=== PATIENT | female | born 1955 | race Caucasian/White ===

== ENCOUNTER → 2018-08-30 | Outpatient (CLI) | payer BC ==
--- NOTE | 2018-08-30 12:41 | CT ---
EXAMINATION TYPE: CT abdomen pelvis w con DATE OF EXAM: 08/30/2018 COMPARISON: NONE HISTORY: 63-year-old female diverticulitis, LLQ pain TECHNIQUE: Contiguous axial scanning of the abdomen and pelvis following administration of 100 ml Iso guillermina 300 IV contrast. Delayed images through the kidneys and coronal/sagittal reconstructions perform ed. CT DLP: 766.5 mGycm Automated exposure control for dose reduction was used. FINDINGS: Heart normal size without pericardial effusion. Lung bases clear without pleural effusion. No focal liver lesion or biliary ductal dilatation. Portal venous system is patent. Adrenal glands, right kidney, gallbladder, and pancreas appear within normal limits. Spleen upper limits of normal in size at 13.7 cm. Extrarenal pelvis involving the left kidney. No dil ated small bowel, free fluid, or free air. No mesenteric or retroperitoneal lymphadenopathy. Normal appendix. Oral contrast progressed to the rectum. Mid to distal sigmoid diverticulosis without pericolonic infl ammatory change seen. However, there is focal eccentric mural based thickening involving the posterio r wall of the rectosigmoid junction spanning approximately 2.3 cm. Refer to axial image 64 and sagitt al image 62. Coronal image 71. Bladder is urine distended. Pelvic phleboliths. Uterus surgically absent. No adnexal abnormality. Nei ther ovary is clearly visualized. No abnormal fluid collection in the pelvis or pelvic lymphadenopath y seen. Bones: Mild degenerative changes at the hips and left SI joint. Mild to moderate scattered degenerati ve disc disease. Facet arthropathy lower lumbar spine. IMPRESSION: 1. MILD DIVERTICULOSIS MID TO DISTAL SIGMOID COLON. NO CT FINDINGS OF ACUTE DIVERTICULITIS. 2. HOWEVER, THERE IS ECCENTRIC MURAL BASED SOFT TISSUE THICKENING AT THE RECTOSIGMOID JUNCTION. DIREC T VISUALIZATION RECOMMENDED TO EXCLUDE UNDERLYING NEOPLASM. 3. SPLEEN UPPER LIMITS OF NORMAL IN SIZE AT 13.7 CM.
== END | disposition home or self-care (01) ==
LOC: RADCTMAIN 10:24
PROVIDERS: ATTEND Surgery Plastic and Reconstructive Surgery
DX: K57.30 Diverticulosis of large intestine without perforation or abscess without bleeding (principal); Z88.0 Allergy status to penicillin; Z88.1 Allergy status to other antibiotic agents
CPT/HCPCS: 74177; Q9967

== ENCOUNTER 2018-09-13 21:22 | Inpatient (IN) | payer BC ==
[2018-09-13] MEDS ORDERED: SODIUM CHLORIDE 0.9% 500 ML 500 ML IV STA (22:20)
--- NOTE | 2018-09-13 22:23 | ED ---
General Adult HPI - General Chief complaint: Recheck/Abnormal Lab/Rx Stated complaint: diverticulitis, low body temp Time Seen by Provider: 09/13/18 22:13 Source: patient, RN notes reviewed Mode of arrival: ambulatory Limitations: no limitations - History of Present Illness Initial comments: Patient is a pleasant 63-year-old female presenting to the emergency Department with complaints of abdominal discomfort. Patient has a history of diverticulitis. Patient states she did have section of colon removed approximately 8 or 9 years ago. Patient had similar symptoms start over a week ago. Patient did have computed tomography scan done around 1 week ago showing diverticulitis. Patient was started on Cipro and Flagyl. Patient is having worsening symptoms, especially today. Patient is having low temperatures and increase discomfort. Patient has increased fullness in her abdomen. Patient has nausea and decreased appetite. No vomiting. No constipation or diarrhea. No bloody stools. - Related Data Home Medications Medication Instructions Recorded Confirmed Cholecalciferol [Vitamin D3] 1,000 unit PO DAILY 09/13/18 09/13/18 Ciprofloxacin HCl [Cipro] 500 mg PO Q12HR 09/13/18 09/13/18 Omeprazole 40 mg PO DAILY 09/13/18 09/13/18 metroNIDAZOLE [Flagyl] 500 mg PO Q8HR 09/13/18 09/13/18 Allergies Allergy/AdvReac Type Severity Reaction Status Date / Time Penicillins Allergy Rash/Hives Verified 09/13/18 22:18 Review of Systems ROS Statement: Those systems with pertinent positive or pertinent negative responses have been documented in the HPI. ROS Other: All systems not noted in ROS Statement are negative. Constitutional: Reports: as per HPI, chills Eyes: Denies: eye pain ENT: Denies: ear pain Respiratory: Denies: cough Cardiovascular: Denies: chest pain Endocrine: Denies: fatigue Gastrointestinal: Reports: abdominal pain, nausea. Denies: vomiting Genitourinary: Denies: dysuria Musculoskeletal: Denies: back pain Skin: Denies: rash Neurological: Denies: weakness Past Medical History Additional Past Medical History / Comment(s): diverticulitis History of Any Multi-Drug Resistant Organisms: None Reported Past Surgical History: Hysterectomy, Orthopedic Surgery Past Psychological History: No Psychological Hx Reported Smoking Status: Never smoker Past Alcohol Use History: None Reported Past Drug Use History: None Reported General Exam Limitations: no limitations General appearance: alert, in no apparent distress Head exam: Present: atraumatic Eye exam: Present: normal appearance ENT exam: Present: normal oropharynx Neck exam: Present: normal inspection Respiratory exam: Present: normal lung sounds bilaterally Cardiovascular Exam: Present: regular rate, normal rhythm Expanded Peripheral pulses: 2+: Dorsalis Pedis (R), Dorsalis Pedis (L) GI/Abdominal exam: Present: soft, tenderness (Mild to moderate tenderness left lower quadrant), normal bowel sounds. Absent: distended, guarding, rebound, rigid, pulsatile mass Extremities exam: Present: pedal edema (+1 bilateral which patient states is chronic). Absent: calf tenderness Neurological exam: Present: alert Psychiatric exam: Present: normal affect, normal mood Skin exam: Present: normal color Course Vital Signs 09/13/18 21:51 Temperature 97.8 F Pulse Rate 69 Respiratory 20 Rate Blood Pressure 162/93 O2 Sat by Pulse 100 Oximetry - Reevaluation(s) Reevaluation #1: 09/13/18 22:27 Case was discussed with Dr. Aguirre, covering for Dr. Huynh, who will admit. Case was also discussed with Dr. Hurt who has seen this patient recently. She does request repeat computed tomography scan. She does recommend Levaquin and Flagyl. Medical Decision Making - Lab Data Result diagrams: 09/13/18 22:52 09/13/18 22:52 Disposition Clinical Impression: Diverticulitis Disposition: ADMITTED IP TO THIS HOSP Is patient prescribed a controlled substance at d/c from ED?: No Decision Time: 22:27
[2018-09-13] MEDS ORDERED: IOPAMIDOL-300 CONTRAST 30 ML VIAL (ORAL USE) PO PRN (22:25)
[2018-09-13] MEDS ORDERED: ONDANSETRON 4 MG/2 ML VIAL IVP PRN (22:28)
[2018-09-13] MEDS ORDERED: HYDROmorphone 0.5 MG/0.5 ML SYRINGE IVP PRN (22:28)
[2018-09-13] MEDS ORDERED: HYDROmorphone 1 MG/ML 1 ML SYRINGE IVP PRN (22:28)
[2018-09-13] MEDS ORDERED: NALOXONE 0.4 MG/ML 1 ML VIAL IV PRN (22:28)
[2018-09-13] MEDS ORDERED: LEVOFLOXACIN 750MG-D5W PMX 750 MG in DEXTROSE/WATER 1 150ML.BAG IVPB STA (22:30)
[2018-09-13] MEDS ORDERED: metroNIDAZOLE-NS PMX 500 MG in SALINE 1 100ML.BAG IVPB STA (22:47)
[2018-09-13] MEDS: PANTOPRAZOLE 40 MG/10 ML VIAL IV SCH (22:58)
[2018-09-13] MEDS: SODIUM CHLORIDE 0.9% 1,000 ML IV SCH (23:04)
[2018-09-13 23:14] LABS: Basophils % (A) 0 %; Eosinophils # (A) 0.2 k/uL (0-0.7); Eosinophils % (A) 4 %; HCT 48.9 % (34.0-46.0); HGB 16.3 gm/dL (11.4-16.0); Lymphocytes # (A) 1.6 k/uL (1.0-4.8); Lymphocytes % (A) 30 %; MCH 31.2 pg (25.0-35.0); MCHC 33.4 g/dL (31.0-37.0); MCV 93.4 fL (80.0-100.0); Mean Platelet Volume 6.2; Monocytes # (A) 0.3 k/uL (0-1.0); Monocytes % (A) 5 %; Neutrophils # (A) 3.3 k/uL (1.3-7.7); Neutrophils % (A) 59 %; Platelet Count 240 k/uL (150-450); RBC 5.24 m/uL (3.80-5.40); RDW 12.5 % (11.5-15.5); WBC 5.5 k/uL (3.8-10.6)
[2018-09-13 23:24] LABS: Partial Thromboplastin Time 26.2 sec (22.0-30.0); Prothrombin Time 10.4 sec (9.0-12.0)
[2018-09-13 23:29] LABS: ALT 39 U/L (9-52); AST 23 U/L (14-36); Albumin 4.1 g/dL (3.5-5.0); Alkaline Phosphatase 71 U/L (38-126); Amylase 45 U/L (30-110); Anion Gap 8 mmol/L; Blood Urea Nitrogen 13 mg/dL (7-17); Calcium 9.4 mg/dL (8.4-10.2); Carbon Dioxide 24 mmol/L (22-30); Chloride 108 mmol/L (98-107); Glucose 91 mg/dL (74-99); Lipase 151 U/L (23-300); Potassium 3.9 mmol/L (3.5-5.1); Sodium 140 mmol/L (137-145); Total Bilirubin 0.6 mg/dL (0.2-1.3); Total Protein 6.7 g/dL (6.3-8.2)
[2018-09-13 23:57] LABS: Appearance,Urine Clear (Clear); Bilirubin,Urine Negative (Negative); Blood,Urine Negative (Negative); Color,Urine Light Yellow; Glucose,Urine (UA) Negative (Negative); Ketones,Urine Negative (Negative); Leukocyte Esterase,Urine Moderate (Negative); Mucus,Urine Rare /hpf; Nitrite,Urine Negative (Negative); PH, Urine 6.5 (5.0-8.0); Protein,Urine Negative (Negative); RBC,Urine 3 /hpf (0-5); Specific Gravity,Urine 1.006 (1.001-1.035); Squamous Epithelial Cell,Urine 3 /hpf (0-4); Urobilinogen,Urine <2.0 mg/dL (<2.0); WBC,Urine 7 /hpf (0-5)
[2018-09-14 01:00] VITALS: RESP 16; BMI 29.9
[2018-09-14] MEDS: SODIUM CHLORIDE 0.9% 1,000 ML IV SCH ×2 (01:36→15:12)
--- NOTE | 2018-09-14 01:46 | CT ---
EXAM: CT Abdomen and Pelvis With Intravenous Contrast CLINICAL HISTORY: Pain. Diverticulitis. History of hysterectomy. TECHNIQUE: Axial computed tomography images of the abdomen and pelvis with intravenous contrast. Oral contrast was administered. Delayed imaging was performed. Coronal and sagittal reformatted images were created and reviewed. CTDI is 26.50 mGy and DLP is 901.40 mGy-cm. This CT exam was performed using one or more of the following dose reduction techniques: automated exposure control, adjustment of the mA and/or kV according to patient size, and/or use of iterative reconstruction technique. COMPARISON: CT dated 08/30/2018. FINDINGS: Lung bases: Unremarkable. No mass. No consolidation. ABDOMEN: Liver: Unremarkable. No mass. Gallbladder and bile ducts: Unremarkable. No radiopaque calculi. No biliary ductal dilation. Pancreas: Unremarkable. No ductal dilation. No mass. No adjacent inflammatory changes. Spleen: Unremarkable. No splenomegaly. Adrenals: Unremarkable. No mass. Kidneys and ureters: Unremarkable. No hydronephrosis or ureteral calculus. No solid mass. Stomach and bowel: Colonic diverticula without evidence of acute diverticulitis. No bowel obstruction. Minimal prominence of rectosigmoid sigmoid wall. Focal wall thickening along rectosigmoid junction is decreased. Stable postsurgical changes of rectosigmoid junction. PELVIS: Appendix: Normal appendix. No findings to suggest acute appendicitis. Bladder: Unremarkable. No mass or wall thickening. Reproductive: Status post hysterectomy. Ovaries not seen. ABDOMEN and PELVIS: Intraperitoneal space: Unremarkable. No free air. No ascites or significant fluid collection. Bones/joints: Degenerative changes of the visualized spine. No acute fracture or malalignment. Soft tissues: Unremarkable. Vasculature: Mild atherosclerosis. No abdominal aortic aneurysm. Lymph nodes: Unremarkable. No enlarged lymph nodes. IMPRESSION: 1. Minimal prominence of rectosigmoid wall which may related to underdistention or mild nonspecific colitis. Focal wall thickening along rectosigmoid junction appears decreased compared to prior CT. Stable postsurgical changes of rectosigmoid junction. Recommend follow-up as clinically warranted. 2. Colonic diverticula without evidence of acute diverticulitis. 3. Status post hysterectomy.
[2018-09-14] MEDS: metroNIDAZOLE-NS PMX 500 MG in SALINE 1 100ML.BAG IVPB SCH ×3 (06:38→17:36)
[2018-09-14] MEDS: PANTOPRAZOLE 40 MG/10 ML VIAL IV SCH (08:22)
[2018-09-14 11:40] LABS: Basophils % (A) 0 %; Eosinophils # (A) 0.1 k/uL (0-0.7); Eosinophils % (A) 2 %; HCT 49.5 % (34.0-46.0); HGB 16.5 gm/dL (11.4-16.0); Lymphocytes # (A) 1.5 k/uL (1.0-4.8); Lymphocytes % (A) 26 %; MCH 31.3 pg (25.0-35.0); MCHC 33.3 g/dL (31.0-37.0); MCV 94.1 fL (80.0-100.0); Mean Platelet Volume 6.7; Monocytes # (A) 0.3 k/uL (0-1.0); Monocytes % (A) 5 %; Neutrophils # (A) 3.7 k/uL (1.3-7.7); Neutrophils % (A) 65 %; Platelet Count 262 k/uL (150-450); RBC 5.26 m/uL (3.80-5.40); RDW 13.6 % (11.5-15.5); WBC 5.6 k/uL (3.8-10.6)
--- NOTE | 2018-09-14 14:50 | P.GSCN ---
History of Present Illness Consult date: 09/14/18 Reason for Consult: diverticulitis Requesting physician: Miguel Blackburn History of present illness: CHIEF COMPLAINT: diverticulitis HISTORY OF PRESENT ILLNESS: 63-year-old female who presented to the emergency room due to abdominal pain. Patient states approximately a week ago she was diagnosed with diverticulitis on an outpatient basis and was prescribed Cipro and Flagyl. She states she had little improvement in her abdominal pain and her temperature was running low and she couldnt get warm so she came to the emergency room for further evaluation. Patient examined at the bedside with family present. She appears comfortable and is laughing and joking with her family. She reports improvement in abdominal pain. She is having loose nonbloody stools. Denies nausea or vomiting. WBC 5.6. Hemoglobin 16.5. Patient reports being placed on antibiotics about 6 times per year, but she is not sure how many of those times are for diverticulitis. PAST MEDICAL HISTORY: See list. PAST SURGICAL HISTORY: See list. SOCIAL HISTORY: No illicit drug use. REVIEW OF SYSTEMS: CONSTITUTIONAL: Denies fever or chills. HEENT: Denies blurred vision, vision changes, or eye pain. Denies hemoptysis CARDIOVASCULAR: Denies chest pain or pressure. RESPIRATORY: No shortness of breath. GASTROINTESTINAL: Refer to HPI for pertinent findings HEMATOLOGIC: Denies bleeding disorders. GENITOURINARY: Denies any blood in urine. SKIN: Denies pruitis. Denies rash. PHYSICAL EXAM: VITAL SIGNS: Reviewed. GENERAL: Well-developed in no acute distress. HEENT: No sclera icterus. Extraocular movements grossly intact. Moist buccal mucosa. Head is atraumatic, normocephalic. ABDOMEN: Soft. Nondistended. Minimal tenderness upon palpation of left lower quadrant. NEUROLOGIC: Alert and oriented. Cranial nerves II through XII grossly intact. IMAGING: per radiologist's dictation: 1. CT abdomen and pelvis minimal prominence of rectosigmoid wall which may the related to under distention or mild nonspecific colitis. Focal wall thickening along the retrosigmoid junction appears decreased compared to prior CT. Stable postsurgical changes of the rectosigmoid junction. Colonic diverticula without evidence of acute diverticulitis. ASSESSMENT: 1. Abdominal pain 2. Acute diverticulitis, failed outpatient treatment 3. History of bowel resection, approximately 9 years ago secondary to diverticulitis PLAN: 1. Continue IV fluids 2. Continue antibiotics 3. Begin clear liquid diet 4. No immediate surgical intervention recommended 5. Patient has outpatient EGD/colonoscopy scheduled for 10/04/[address] Tolentino Nurse practitioner note has been reviewed by physician. Signing provider agrees with the documented findings, assessment, and plan of care. Past Medical History Additional Past Medical History / Comment(s): diverticulitis History of Any Multi-Drug Resistant Organisms: None Reported Past Surgical History: Hysterectomy, Orthopedic Surgery Additional Past Surgical History / Comment(s): surgeries for plantar fasciatis, ganglion cysts, sergio's neuroma, tendon release Past Anesthesia/Blood Transfusion Reactions: Motion Sickness Additional Past Anesthesia/Blood Transfusion Reaction / Comm: Nausea with anesthesia Past Psychological History: No Psychological Hx Reported Smoking Status: Never smoker Past Alcohol Use History: None Reported Past Drug Use History: None Reported - Past Family History Father Family Medical History: Hypertension Additional Family Medical History / Comment(s): Pancreatitis Mother Family Medical History: Congestive Heart Failure (CHF) Medications and Allergies Home Medications Medication Instructions Recorded Confirmed Type Cholecalciferol [Vitamin D3] 1,000 unit PO DAILY 09/13/18 09/14/18 History Ciprofloxacin HCl [Cipro] 500 mg PO Q12HR 09/13/18 09/14/18 History Omeprazole 40 mg PO DAILY 09/13/18 09/14/18 History metroNIDAZOLE [Flagyl] 500 mg PO Q8HR 09/13/18 09/14/18 History Allergies Allergy/AdvReac Type Severity Reaction Status Date / Time Penicillins Allergy Rash/Hives Verified 09/14/18 01:03 Surgical - Exam Vital Signs Temp Pulse Resp BP Pulse Ox 97.8 F 69 20 162/93 100 09/13/18 21:51 09/13/18 21:51 09/13/18 21:51 09/13/18 21:51 09/13/18 21:51 Results - Labs 09/14/18 10:55 09/13/18 22:52 Abnormal Lab Results - Last 24 Hours (Table) 09/13/18 09/13/18 09/13/18 Range/Units 22:52 22:52 23:37 Hgb 16.3 H (11.4-16.0) gm/dL Hct 48.9 H (34.0-46.0) % Chloride 108 H (98-107) mmol/L Ur Leukocyte Esterase Moderate H (Negative) Urine WBC 7 H (0-5) /hpf Urine Mucus Rare H (None) /hpf 09/14/18 Range/Units 10:55 Hgb 16.5 H (11.4-16.0) gm/dL Hct 49.5 H (34.0-46.0) % Chloride (98-107) mmol/L Ur Leukocyte Esterase (Negative) Urine WBC (0-5) /hpf Urine Mucus (None) /hpf Diabetes panel 09/13/18 Range/Units 22:52 Sodium 140 (137-145) mmol/L Potassium 3.9 (3.5-5.1) mmol/L Chloride 108 H (98-107) mmol/L Carbon Dioxide 24 (22-30) mmol/L BUN 13 (7-17) mg/dL Creatinine 0.64 (0.52-1.04) mg/dL Glucose 91 (74-99) mg/dL Calcium 9.4 (8.4-10.2) mg/dL AST 23 (14-36) U/L ALT 39 (9-52) U/L Alkaline Phosphatase 71 (38-126) U/L Total Protein 6.7 (6.3-8.2) g/dL Albumin 4.1 (3.5-5.0) g/dL Calcium panel 09/13/18 Range/Units 22:52 Calcium 9.4 (8.4-10.2) mg/dL Albumin 4.1 (3.5-5.0) g/dL Pituitary panel 09/13/18 Range/Units 22:52 Sodium 140 (137-145) mmol/L Potassium 3.9 (3.5-5.1) mmol/L Chloride 108 H (98-107) mmol/L Carbon Dioxide 24 (22-30) mmol/L BUN 13 (7-17) mg/dL Creatinine 0.64 (0.52-1.04) mg/dL Glucose 91 (74-99) mg/dL Calcium 9.4 (8.4-10.2) mg/dL Adrenal panel 09/13/18 Range/Units 22:52 Sodium 140 (137-145) mmol/L Potassium 3.9 (3.5-5.1) mmol/L Chloride 108 H (98-107) mmol/L Carbon Dioxide 24 (22-30) mmol/L BUN 13 (7-17) mg/dL Creatinine 0.64 (0.52-1.04) mg/dL Glucose 91 (74-99) mg/dL Calcium 9.4 (8.4-10.2) mg/dL Total Bilirubin 0.6 (0.2-1.3) mg/dL AST 23 (14-36) U/L ALT 39 (9-52) U/L Alkaline Phosphatase 71 (38-126) U/L Total Protein 6.7 (6.3-8.2) g/dL Albumin 4.1 (3.5-5.0) g/dL Assessment and Plan (1) Abdominal pain Current Visit: Yes Status: Acute Code(s): R10.9 - UNSPECIFIED ABDOMINAL PAIN SNOMED Code(s): 58742732 (2) History of bowel resection Current Visit: Yes Status: Acute Code(s): Z98.890 - OTHER SPECIFIED POSTPROCEDURAL STATES; Z90.49 - ACQUIRED ABSENCE OF OTHER SPECIFIED PARTS OF DIGESTIVE TRACT SNOMED Code(s): 264919015 (3) Diverticulitis Current Visit: Yes Status: Acute Code(s): K57.92 - DVTRCLI OF INTEST, PART UNSP, W/O PERF OR ABSCESS W/O BLEED SNOMED Code(s): 338296791
[2018-09-14 17:19] VITALS: BP 144/87; PULSE 74; TEMP 97.6
[2018-09-14] MEDS ORDERED: LEVOFLOXACIN 750MG-D5W PMX 750 MG in DEXTROSE/WATER 1 150ML.BAG IVPB SCH (22:30)
--- NOTE | 2018-09-15 07:15 | DS ---
DISCHARGE SUMMARY HISTORY PHYSICAL AND DISCHARGE SUMMARY: DATE OF ADMISSION: 09/13/2018 DATE OF DISCHARGE: 09/14/2018 DATE OF SERVICE: 09/14/2018. PRESENTING COMPLAINT: Abdominal pain. HISTORY OF PRESENTING COMPLAINT: This is a pleasant 63-year-old patient who follows with Dr. Chris Pratt. The patient has had a history of diverticulitis, had inches of bowel removed by Dr. Nataliia Perez in the past. The patient for about 3 months has been having abdominal pain on and off and has received at least what appears to be a 2 or 3 course of antibiotics. Yesterday, the patient does get abdominal pain on and off. Pretty much lower abdomen and waxes and wanes. Yesterday felt a bit cold, had some chills. Daughter took a temperature that was 94.5. There was no nausea, vomiting. The patient occasionally does have loose stools. When I came to her room, overall patient is doing better, looking well. The patient put on IV antibiotic. The patient is still currently on Cipro and Flagyl at home. The patient has been seen by Dr. Tolentino's in the outpatient and has been offered surgery, but the patient has been putting it off concerned about the surgery. The patient's 2 daughters at the bedside. Currently no fever or chills. Overall feeling better. Did tolerate some liquids. The patient also seen by Dr. Tolentino, from her standpoint, patient is stable. REVIEW OF SYSTEMS: CONSTITUTIONAL: None. HEENT: None. RESPIRATORY: None. GASTROINTESTINAL as above. GENITOURINARY: None. MUSCULOSKELETAL: None. DERMATOLOGICAL, HEMATOLOGIC, LYMPHATICS: none. PSYCHIATRY: None. NEUROLOGICAL: None. PAST MEDICAL HISTORY: Colonic diverticulitis. PAST SURGICAL HISTORY: Hysterectomy, surgery for plantar fasciitis, ganglionic cyst, Moore's neuroma, tendon release. SOCIAL HISTORY: Does not smoke or drink alcohol. . Used to work at in services. FAMILY HISTORY: Hypertension, pancreatitis. HOME MEDICATIONS: 1. Flagyl 5 mg q.8. 2. Omeprazole 40 mg p.o. daily. 3. Cipro 500 mg p.o. q.12h. 4. Vitamin D3 1000 units p.o. daily. ALLERGIES: PENICILLIN. PHYSICAL EXAMINATION: VITAL SIGNS: Temperature 97.6, pulse 72, respiration 16, blood pressure 138/79, pulse ox 96 percent on room air. GENERAL: Sitting in a chair, comfortable, smiling, laughing at family. EYES: Pupils are equal. Conjunctivae normal. HEENT: External appearance of nose and ears normal. Oral cavity normal. NECK: JVD not raised. Mass not palpable. RESPIRATORY: Effort normal. LUNGS: Fair air entry. CARDIOVASCULAR: Firs and seconds sound no edema. ABDOMEN: Mild tenderness. No guarding or rigidity. Liver and spleen not palpable. Bowel sounds present. LYMPHATICS: No lymph nodes palpable in the neck or axilla. PSYCHIATRY: Alert and oriented x3. Mood and affect normal. NEUROLOGICAL: Pupils equal. Cranial nerves grossly intact. Power and sensation grossly intact. INVESTIGATIONS: White count 5.5, potassium 3.9, BUN and creatinine is normal. UA positive for leukocyte esterase, 7 WBC, rare mucus. CT scan of the abdomen and pelvis shows colonic diverticula. ASSESSMENT: 1. Possible acute urinary tract infection with cystitis. 2. Chronic diverticulitis with what appears to be maybe 2 or 3 flare ups. PLAN: The patient is admitted, given IV fluids, was put on IV Levaquin and Flagyl. The patient was seen by Dr. Tolentino, felt to be stable otherwise. Patient doing rather well. Patient will be discharged home as patient is keen to go home. Care was discussed with the family at the bedside. The patient should get an appointment with Dr. Tolentino next week and because of repeated bouts of diverticulitis, probably get her EGD and colonoscopy done, which is scheduled for October 04 and then proceed for surgery for the same. Questions were answered and discussed with this very pleasant family. Copy to Dr. Pratt. This is both a history physical and discharge summary on this patient. MMODL / IJN: [id number] /
== END 2018-09-14 19:24 | disposition home or self-care (01) | DRG 392 ==
LOC: EC 21:22 → 4SSUR 22:28 → 6PED 09-14 00:06
PROVIDERS: ADMIT Hospitalist; ATTEND Hospitalist
DX: K57.32 Diverticulitis of large intestine without perforation or abscess without bleeding (principal); N30.90 Cystitis, unspecified without hematuria; Z88.0 Allergy status to penicillin; Z90.710 Acquired absence of both cervix and uterus; Z90.49 Acquired absence of other specified parts of digestive tract; Z82.49 Family history of ischemic heart disease and other diseases of the circulatory system
CPT/HCPCS: 74177; 80053; 81001; 82150; 83605; 83690; 85025; 85610; 85730; 86850; 86900; 86901; 87040; 96365; 96375; 99284

== ENCOUNTER 2018-09-26 10:46 | Day surgery (SDC) | payer BC ==
[2018-09-25 08:22] VITALS: BMI 29.0
--- NOTE | 2018-09-26 07:50 | P.GSHP ---
History of Present Illness H&P Date: 09/26/18 CHIEF COMPLAINT: GERD and diverticulitis HISTORY OF PRESENT ILLNESS: The patient is a 63-year-old female who presents with gastroesophageal reflux disease and diverticulitis Upper and lower endoscopy were offered for further evaluation and management. PAST MEDICAL HISTORY: Please see list. PAST SURGICAL HISTORY: Please see list. MEDICATIONS: Please see list. ALLERGIES: Please see list. SOCIAL HISTORY: No illicit drug use FAMILY HISTORY: No reports of Crohn disease or ulcerative colitis. REVIEW OF ORGAN SYSTEMS: CONSTITUTIONAL: No reports of fevers or chills. GI: Denies any blood in stools or constipation. PHYSICAL EXAM: VITAL SIGNS: Stable GENERAL: Well-developed pleasant in no acute distress. HEENT: No scleral icterus. Extraocular movements grossly intact. Moist buccal mucosa. NECK: Supple without lymphadenopathy. CHEST: Unlabored respirations. Equal bilateral excursions. CARDIOVASCULAR: Regular rate and rhythm. Distal 2+ pulses. ABDOMEN: Soft, nondistended. MUSCULOSKELETAL: No clubbing, cyanosis, or edema. ASSESSMENT: 1. Gastroesophageal reflux disease 2. Diverticulitis PLAN: 1. Recommend proceeding with an upper and lower endoscopy Past Medical History Additional Past Medical History / Comment(s): diverticulitis, pt reports firmness to skin lt arm where IV was placed recent hospitalization plans to call dr boyer this am to discuss for care advice History of Any Multi-Drug Resistant Organisms: None Reported Past Surgical History: Hysterectomy, Orthopedic Surgery Additional Past Surgical History / Comment(s): surgeries for plantar fasciatis, ganglion cysts, sergio's neuroma, tendon release Past Anesthesia/Blood Transfusion Reactions: Family History of Problems w/ Anesthesia, Motion Sickness, Postoperative Nausea & Vomiting (PONV) Additional Past Anesthesia/Blood Transfusion Reaction / Comment(s): mother ponv Smoking Status: Never smoker - Past Family History Father Family Medical History: Hypertension Additional Family Medical History / Comment(s): Pancreatitis Mother Family Medical History: Congestive Heart Failure (CHF) Medications and Allergies Home Medications Medication Instructions Recorded Confirmed Type Cholecalciferol [Vitamin D3] 1,000 unit PO DAILY 09/13/18 09/25/18 History Allergies Allergy/AdvReac Type Severity Reaction Status Date / Time Penicillins Allergy Rash/Hives Verified 09/25/18 08:16
[~2018-09-26 10:46] MED LIST: LACTATED RINGERS 1,000 ML IV SCH; LIDOCAINE 1% 20 ML VIAL (10MG/ML) FOR IV START INTRADERMA PRN
[2018-09-26 11:00] VITALS: TEMP 99
[2018-09-26] MEDS ORDERED: PROPOFOL 10 MG/ML 20 ML VIAL IV ONE (11:06)
--- NOTE | 2018-09-26 11:30 | P.PCN ---
Date of Procedure: 09/26/18 Description of Procedure: PREOPERATIVE DIAGNOSIS: Gastroesophageal reflux disease. POSTOPERATIVE DIAGNOSIS: Duodenitis with acute inflammation Gastritis acute, with recent bleed Gastroesophageal reflux disease. Diaphragmatic hiatal hernia OPERATION: Esophagogastroduodenoscopy with biopsies along antrum. SURGEON: Princess Tolentino MD ANESTHESIA: MAC. INDICATIONS: The patient is a 45-year-old female who presents with a history of reflux disease. Benefits and risks of the procedure were described. Informed consent was obtained. DESCRIPTION: The patient was brought into the endoscopy suite and laid in the left lateral decubitus position. An Olympus gastroscope was passed along the posterior orop harynx down to the distal esophagus where the squamocolumnar junction was encountered at 40 cm from the incisors. The stomach was entered and no bile reflux was found. Additional findings are listed below. Biopsies with cold forceps were obtained of the antrum. The first through third portion of the duodenum was examined and remarkable for duodenitis. Retroflexion of the scope confirmed Hill grade 3 lower esophageal valve. The squamocolumnar junction demonstrated LA grade A erosive esophagitis. The stomach was desufflated. The patient tolerated the procedure well. FINDINGS: Squamocolumnar junction 40 cm from the incisors. Diaphragmatic hiatus at 41 cm. Hiatal hernia, 1 cm Hill grade 3 lower esophageal valve. LA grade A erosive esophagitis. Active duodenitis. Acute gastritis with recent bleed RECOMMENDATIONS: Upper endoscopy as needed.
--- NOTE | 2018-09-26 11:36 | P.PCN ---
Date of Procedure: 09/26/18 Description of Procedure: PREOPERATIVE DIAGNOSIS: Recurrent diverticulitis Left lower quadrant abdominal pain History of partial colectomy POSTOPERATIVE DIAGNOSIS: Recurrent diverticulitis Left lower quadrant abdominal pain History of partial colectomy Sigmoid diverticulitis OPERATION: Colonoscopy to the ileocecal valve and appendiceal orifice. SURGEON: Princess Tolentino MD. ANESTHESIA: MAC. INDICATIONS: The patient is a 63-year-old female who presents with recurrent left lower quadrant abdominal pain and past history of diverticulitis. Benefits and risks were described and informed consent was obtained. DESCRIPTION OF PROCEDURE: The patient had undergone Gatorade, MiraLAX and Dulcolax prep. She had been brought into the operating room and laid in the left lateral decubitus position. After adequate intravenous sedation, the rectum was examined with 2% lidocaine jelly. External hemorrhoids were encountered. The rectal tone was within normal limits. No lesions were palpated in the rectal vault. An Olympus colonoscope was advanced until the ileocecal valve and appendiceal orifice were clearly viewed. The prep was fair. The scope was removed with visualization of each mucosal fold. Sigmoid diverticulosis with recent inflammation was encountered. Prior colectomy and anastomosis was identified with inflammation proximal to previous resection. No colonic polyps were found. Retroflexion of the scope demonstrated grade 1 internal hemorrhoids without active bleeding or inflammation. The colon was desufflated. The patient had tolerated the procedure well. Withdrawal time was over 6 minutes. FINDINGS: [place] preparation quality scale 2 (1-5) Internal hemorrhoids, stage I External prolapsed hemorrhoids, stage I No arteriovenous malformations. No adenomatous polyps. Active sigmoid diverticulitis colitis with diverticulosis, mild RECOMMENDATIONS: Lower endoscopy in 5 years, 2023 Plan - Discharge Summary Discharge Rx Participant: No New Discharge Prescriptions: New Ranitidine HCl [Zantac] 150 mg PO BID #30 tab No Action Cholecalciferol [Vitamin D3] 1,000 unit PO DAILY Discharge Medication List Cholecalciferol [Vitamin D3] 1,000 unit PO DAILY 09/13/18 [History] Ranitidine HCl [Zantac] 150 mg PO BID #30 tab 09/26/18 [Rx] Follow up Appointment(s)/Referral(s): Princess Tolentino MD [STAFF PHYSICIAN] - 10/09/18 Patient Instructions/Handouts: *Surgery [facility] - (Anesthesia) Endoscopy Discharge Instructions, Hiatal Hernia (DC), Gastritis (DC), Diverticulitis (DC), Duodenitis (DC), Upper Endoscopy (DC), Low Fiber Diet (DC), Diverticulitis Diet (DC) Activity/Diet/Wound Care/Special Instructions: Low fiber diet for 1 week. Discharge Disposition: HOME SELF-CARE
[2018-09-26 11:50] VITALS: BP 132/85; PULSE 74; RESP 18
== END 2018-09-26 12:10 | disposition home or self-care (01) ==
LOC: ORWHC2ENDO 10:46
PROVIDERS: ATTEND Surgery Plastic and Reconstructive Surgery
DX: K57.32 Diverticulitis of large intestine without perforation or abscess without bleeding (principal); K57.30 Diverticulosis of large intestine without perforation or abscess without bleeding; K52.9 Noninfective gastroenteritis and colitis, unspecified; Z90.49 Acquired absence of other specified parts of digestive tract; K44.9 Diaphragmatic hernia without obstruction or gangrene; K29.80 Duodenitis without bleeding; K29.50 Unspecified chronic gastritis without bleeding; K64.0 First degree hemorrhoids; Z82.49 Family history of ischemic heart disease and other diseases of the circulatory system; Z88.0 Allergy status to penicillin
CPT/HCPCS: 88305; 45378; 43239; J2704

== ENCOUNTER 2018-10-29 09:49 | Inpatient (IN) | payer BC ==
[2018-10-29] MEDS ORDERED: SODIUM CHLORIDE 0.9% 500 ML 500 ML IV STA (11:04)
[2018-10-29] MEDS ORDERED: IPRATROPIUM-ALBUTEROL 3 ML NEB INHALATION STA (11:18)
--- NOTE | 2018-10-29 11:18 | ED ---
URI HPI - General Chief Complaint: Upper Respiratory Infection Stated Complaint: Sob Time Seen by Provider: 10/29/18 10:59 Source: patient Mode of arrival: ambulatory Limitations: no limitations - History of Present Illness Initial Comments: 63-year-old female presenting today for chief complaint of cough shortness of breath or chest pain. Patient states that she was diagnosed with pneumonia 2 weeks ago. She states this was a diagnosis. Chest x-ray by her primary care provider Dr. Huynh. She states at that time she was started on antibiotic cour se, she states she finished this Monday. She states it was Cefdinir. Patient states she was also prescribed a Medrol Dosepak at that time. Patient denies a smoking history. She states that she has not had much sputum production she states that her Mucinex to help bring things up. Patient states she has had a raspy voice on-and-off sore throat. Patient states when she was initially diagnosed she had a fever patient states this is since subsided. Patient is afebrile and well-appearing upon arrival. Patient states she had some hemoptysis upon initial disease onset when she was coughing hard. She denies history of DVT pulmonary embolism, recent surgeries. Pt had a recent hospitalization for less than 24 hours within 90 days for an EGD/biopsy. Patient denies any unilateral or lower extremity swelling. Patient states she is short of breath when she coughs denies being overtly shortness of breath when she is at rest. Pt states she does have a dull aching pain all over the chest when she takes a deep breath. Remaining ROS (-). Upon arrival pt - Related Data Home Medications Medication Instructions Recorded Confirmed guaiFENesin [Mucinex] 600 mg PO BID PRN 10/29/18 10/29/18 Allergies Allergy/AdvReac Type Severity Reaction Status Date / Time Penicillins Allergy Unknown Verified 10/29/18 13:22 Review of Systems ROS Statement: Those systems with pertinent positive or pertinent negative responses have been documented in the HPI. ROS Other: All systems not noted in ROS Statement are negative. Past Medical History Additional Past Medical History / Comment(s): diverticulitis, pt reports firmness to skin lt arm where IV was placed recent hospitalization plans to call dr boyer this am to discuss for care advice History of Any Multi-Drug Resistant Organisms: None Reported Past Surgical History: Hysterectomy, Orthopedic Surgery Additional Past Surgical History / Comment(s): surgeries for plantar fasciatis, ganglion cysts, sergio's neuroma, tendon release Past Anesthesia/Blood Transfusion Reactions: Family History of Problems w/ Anesthesia, Motion Sickness, Postoperative Nausea & Vomiting (PONV) Additional Past Anesthesia/Blood Transfusion Reaction / Comment(s): mother ponv Past Psychological History: No Psychological Hx Reported Smoking Status: Never smoker Past Alcohol Use History: None Reported Past Drug Use History: None Reported - Past Family History Father Family Medical History: Hypertension Additional Family Medical History / Comment(s): Pancreatitis Mother Family Medical History: Congestive Heart Failure (CHF) General Exam - General Exam Comments Initial Comments: General: The patient is awake and alert, in no distress, pt does have an obvious dry cough on exam/gross inspection Eye: +3 mm pupils are equal, round and reactive to light, extra-ocular movements are intact. No nystagmus. There is normal conjunctiva bilaterally. No signs of icterus. No photophobia Ears, nose, mouth and throat: There are moist mucous membranes and no oral lesions. Oropharynx was not erythematous there is no tonsillar enlargement exudates or lesions. Uvula midline. Tympanic membranes are not erythematous or is no effusions bulging or retraction. No tenderness to palpation of the mastoid. No anterior cervical lymphadenopathy. Rhinorrhea, clear and bilateral nares. No tripoding, no drooling. Neck: The neck is supple, there is no tenderness or JVD. No nuchal rigidity Cardiovascular: There is a regular rate and rhythm. No murmur, rub or gallop is appreciated. Respiratory: Lungs are clear to auscultation, respirations are non-labored, breath sounds are equal. No wheezes, stridor, rales, or rhonchi. No retractions or abdominal breathing. Gastrointestinal: Soft, non-distended, non-tender abdomen without masses or organomegaly noted. There is no rebound or guarding present. Bowel sounds are unremarkable. Musculoskeletal: Normal ROM, no tenderness. Strength 5/5. Sensation intact. Radial pulses equal bilaterally 2+. Neurological: A&O x 3. CN II-XII intact, There are no obvious motor or sensory deficits. Coordination appears grossly intact. Speech appears normal, no muffling. Skin: Skin is warm and dry and no rashes or lesions are noted. No extremity edema Psychiatric: Cooperative Limitations: no limitations Course Vital Signs 10/29/18 10/29/18 10/29/18 10:04 11:52 12:02 Temperature 98.4 F Pulse Rate 82 68 75 Respiratory 18 Rate Blood Pressure 158/77 O2 Sat by Pulse 98 Oximetry Medical Decision Making - Medical Decision Making 63-year-old female presenting today for chief complaint of increasing shortness of breath cough. Patient recently treated with Cefdinir outpatient for pneumonia. Patient states she does not feel antibiotics are working. Patient denies recent fever. Patient states she has had chills. Patient states with inspiration at times she does have a chest pain. Patient denies chest pain at rest or upon exertion. EKG revealed no findings consistent with ischemia. No ST elevation or depression. Chest x-ray shows a multifocal pneumonia right- sided. Patient did admit to hemoptysis, d-dimer return positive. CT angiography was obtained revealing no acute pulmonary embolism redemonstration of the multifocal pneumonia. This time feel patient has failed outpatient treatment although I do not feel that Cefdinir was an appropriate antibiotic regimen. Patient is not hypoxic or tachycardic. Patient appears well no signs of her respiratory distress. Patient does not have extra wheeze on examination. Slightly diminished air movement, patient was given 1 DuoNeb treatment. Patient was provided sawing [facility] emergency department. This I feel patient should be admitted for IV antibiotics. Patient was admitted to observation. Dave Esquivel evaluated patient in the ER, accepting admitting provider. Prior to admission discussed the case by attending provider Dr. Sterling who is agreeable to impression and plan. He did review chest x-ray, he spoke with the vomiting provider Dr. Esquivel. - Lab Data Result diagrams: 10/29/18 11:24 10/29/18 11:24 Lab Results 10/29/18 10/29/18 10/29/18 Range/Units 11:24 11:24 11:24 WBC 9.2 (3.8-10.6) k/uL RBC 5.21 (3.80-5.40) m/uL Hgb 15.8 (11.4-16.0) gm/dL Hct 47.3 H (34.0-46.0) % MCV 90.9 (80.0-100.0) fL MCH 30.4 (25.0-35.0) pg MCHC 33.4 (31.0-37.0) g/dL RDW 13.3 (11.5-15.5) % Plt Count 351 (150-450) k/uL Neutrophils % 75 % Lymphocytes % 15 % Monocytes % 5 % Eosinophils % 3 % Basophils % 1 % Neutrophils # 6.9 (1.3-7.7) k/uL Lymphocytes # 1.4 (1.0-4.8) k/uL Monocytes # 0.5 (0-1.0) k/uL Eosinophils # 0.3 (0-0.7) k/uL Basophils # 0.1 (0-0.2) k/uL PT 10.3 (9.0-12.0) sec INR 1.0 (<1.2) APTT 28.1 (22.0-30.0) sec D-Dimer 1.19 H (<0.60) mg/L FEU Sodium 139 (137-145) mmol/L Potassium 3.9 (3.5-5.1) mmol/L Chloride 105 (98-107) mmol/L Carbon Dioxide 27 (22-30) mmol/L Anion Gap 7 mmol/L BUN 12 (7-17) mg/dL Creatinine 0.56 (0.52-1.04) mg/dL Est GFR (CKD-EPI)AfAm >90 (>60 ml/min/1.73 sqM) Est GFR (CKD-EPI)NonAf >90 (>60 ml/min/1.73 sqM) Glucose 90 (74-99) mg/dL Calcium 9.0 (8.4-10.2) mg/dL Total Bilirubin 0.6 (0.2-1.3) mg/dL AST 21 (14-36) U/L ALT 25 (9-52) U/L Alkaline Phosphatase 83 (38-126) U/L Troponin I (0.000-0.034) ng/mL Total Protein 6.7 (6.3-8.2) g/dL Albumin 3.6 (3.5-5.0) g/dL 10/29/18 Range/Units 11:24 WBC (3.8-10.6) k/uL RBC (3.80-5.40) m/uL Hgb (11.4-16.0) gm/dL Hct (34.0-46.0) % MCV (80.0-100.0) fL MCH (25.0-35.0) pg MCHC (31.0-37.0) g/dL RDW (11.5-15.5) % Plt Count (150-450) k/uL Neutrophils % % Lymphocytes % % Monocytes % % Eosinophils % % Basophils % % Neutrophils # (1.3-7.7) k/uL Lymphocytes # (1.0-4.8) k/uL Monocytes # (0-1.0) k/uL Eosinophils # (0-0.7) k/uL Basophils # (0-0.2) k/uL PT (9.0-12.0) sec INR (<1.2) APTT (22.0-30.0) sec D-Dimer (<0.60) mg/L FEU Sodium (137-145) mmol/L Potassium (3.5-5.1) mmol/L Chloride (98-107) mmol/L Carbon Dioxide (22-30) mmol/L Anion Gap mmol/L BUN (7-17) mg/dL Creatinine (0.52-1.04) mg/dL Est GFR (CKD-EPI)AfAm (>60 ml/min/1.73 sqM) Est GFR (CKD-EPI)NonAf (>60 ml/min/1.73 sqM) Glucose (74-99) mg/dL Calcium (8.4-10.2) mg/dL Total Bilirubin (0.2-1.3) mg/dL AST (14-36) U/L ALT (9-52) U/L Alkaline Phosphatase (38-126) U/L Troponin I <0.012 (0.000-0.034) ng/mL Total Protein (6.3-8.2) g/dL Albumin (3.5-5.0) g/dL - EKG Data EKG Comments: Ventricular rate 71 bpm, OH interval 148 ms, QRS duration 82 ms, QT/QTC 394/428 ms. This is normal sinus. No ST elevation or depression. Nonspecific T-wave. Normal R-wave progression. EKG was interpreted by myself. Disposition Clinical Impression: Multifocal pneumonia, Shortness of breath Disposition: HOME SELF-CARE Condition: Good Is patient prescribed a controlled substance at d/c from ED?: No Referrals: Chris Pratt MD [Primary Care Provider] - 1-2 days Time of Disposition: 13:49 Decision to Admit Reason: Admit from EC Decision Date: 10/29/18 Decision Time: 13:49
[2018-10-29 11:48] LABS: Prothrombin Time 10.3 sec (9.0-12.0)
[2018-10-29 11:49] LABS: ALT 25 U/L (9-52); AST 21 U/L (14-36); Albumin 3.6 g/dL (3.5-5.0); Alkaline Phosphatase 83 U/L (38-126); Anion Gap 7 mmol/L; Basophils # (A) 0.1 k/uL (0-0.2); Basophils % (A) 1 %; Blood Urea Nitrogen 12 mg/dL (7-17); Carbon Dioxide 27 mmol/L (22-30); Chloride 105 mmol/L (98-107); Eosinophils # (A) 0.3 k/uL (0-0.7); Eosinophils % (A) 3 %; Glucose 90 mg/dL (74-99); HCT 47.3 % (34.0-46.0); HGB 15.8 gm/dL (11.4-16.0); Lymphocytes # (A) 1.4 k/uL (1.0-4.8); Lymphocytes % (A) 15 %; MCH 30.4 pg (25.0-35.0); MCHC 33.4 g/dL (31.0-37.0); MCV 90.9 fL (80.0-100.0); Mean Platelet Volume 6.4; Monocytes # (A) 0.5 k/uL (0-1.0); Monocytes % (A) 5 %; Neutrophils # (A) 6.9 k/uL (1.3-7.7); Neutrophils % (A) 75 %; Partial Thromboplastin Time 28.1 sec (22.0-30.0); Platelet Count 351 k/uL (150-450); Potassium 3.9 mmol/L (3.5-5.1); RBC 5.21 m/uL (3.80-5.40); RDW 13.3 % (11.5-15.5); Sodium 139 mmol/L (137-145); Total Bilirubin 0.6 mg/dL (0.2-1.3); Total Protein 6.7 g/dL (6.3-8.2); WBC 9.2 k/uL (3.8-10.6)
--- NOTE | 2018-10-29 11:55 | XR ---
EXAMINATION TYPE: XR chest 2V DATE OF EXAM: 10/29/2018 COMPARISON: None INDICATION: Difficulty breathing recent pneumonia TECHNIQUE: Frontal and lateral views of the chest are obtained. FINDINGS: The heart size is normal. The pulmonary vasculature is normal. There is an infiltrate within the right middle lobe silhouetting the right heart border. This 7 on th e lateral projection. Findings can be compatible with right middle lobe pneumonia. Follow-up can be p erformed. IMPRESSION: 1. Right middle lobe infiltrate can be compatible with pneumonia. Follow-up can be performed.
[2018-10-29 12:15] LABS: D-Dimer 1.19 mg/L FEU (<0.60)
--- NOTE | 2018-10-29 13:01 | CT ---
EXAMINATION TYPE: CT chest angio for PE DATE OF EXAM: 10/29/2018 COMPARISON: Chest x-ray same date HISTORY: Chest tightness, shortness of breath and cough CT DLP: 296.5 mGycm Automated exposure control for dose reduction was used. CONTRAST: CT Chest for pulmonary embolism performed with with IV Contrast, patient injected with 100 mL of Isov ue 300. FINDINGS: LUNGS: The lungs are stable, there is right middle lobe pneumonia, airspace disease with air bronchog shiv and volume loss, small amount of inflammatory change also suspected in the right upper lobe, min imal patchy density at the posterior lung bases and lingula, some mild emphysematous change. There is no pleural effusion or pneumothorax seen. The tracheobronchial tree is patent. MEDIASTINUM: There is satisfactory enhancement of the pulmonary artery and its branches, there is no CT evidence for pulmonary embolism. There are no greater than 1 cm hilar or mediastinal lymph nodes. No pericardial effusion is seen. AORTA: No additional significant abnormality is seen. OTHER: No additional significant abnormality is seen. IMPRESSION: Findings compatible with plain film, correlate for multifocal pneumonia. Follow-up recommended. No ev ident pulmonary embolism.
[2018-10-29] MEDS ORDERED: CEFEPIME 1 GM in SODIUM CHLORIDE 0.9% 50 ML IVPB STA (13:23)
[2018-10-29] MEDS ORDERED: AZITHROMYCIN 500 MG in SODIUM CHLORIDE 0.9% 250 ML IVPB STA (13:24)
[2018-10-29] MEDS ORDERED: CEFEPIME 2 GM in SODIUM CHLORIDE 0.9% 100 ML IVPB STA (13:34)
[2018-10-29] MEDS ORDERED: NALOXONE 0.4 MG/ML 1 ML VIAL IV PRN (13:45)
[2018-10-29] MEDS: SODIUM CHLORIDE 0.9% 1,000 ML IV SCH ×2 (13:53→23:01)
[2018-10-29] MEDS ORDERED: IPRATROPIUM-ALBUTEROL 3 ML NEB INHALATION PRN (15:01)
[2018-10-29] MEDS ORDERED: predniSONE 10 MG TAB PO STA (15:02)
[2018-10-29] MEDS ORDERED: PANTOPRAZOLE 40 MG TABLET PO STA (15:10)
--- NOTE | 2018-10-29 15:10 | P.HPIM ---
History of Present Illness H&P Date: 10/29/18 Chief Complaint: Cough and shortness of breath The patient is a 63-year-old female with a past medical history of diverticulitis who presents to the ER via EMS with chief complaint of cough and shortness of breath. Apparently the patient had symptoms starting back 2 weeks ago with a cough that was initially nonproductive but has been productive over the last 2 days, she reports some progressive shortness of breath. She reports falling with her PCP Dr. Hughes in clinic and has had 2 chest x-rays, the patient has also been on oral antibiotics with Ceftinir and a Medrol Dosepak which is now finished. The patient reports subjective fevers chills or night sweats previously but now resolved. She also reported some pleuritic chest discomfort worsened by cough, which is also now improved. The patient reports hives began ALLERGY to penicillin. She denies any nausea vomiting or abdominal pain. The patient was recently hospitalized about a month ago for an acute diverticulitis flared was treated with Flagyl and ciprofloxacin in the ER the patient had a comprehensive workup. CBC was unremarkable she had no leukocytosis or bandemia, BNP was also normal, d-dimer was elevated at 1.19. Chest x-ray showed right middle lobe infiltrate compatible with pneumonia. the chest was negative for PE but showed multifocal pneumonia, EKG showed sinus mechanism without any suggestion of acute ischemia. Patient has normal vital signs and is hemodynamically stable Review of Systems Pertinent positives per HPI all other systems otherwise negative Past Medical History Additional Past Medical History / Comment(s): diverticulitis, pt reports firmness to skin lt arm where IV was placed recent hospitalization plans to call dr boyer this am to discuss for care advice History of Any Multi-Drug Resistant Organisms: None Reported Past Surgical History: Hysterectomy, Orthopedic Surgery Additional Past Surgical History / Comment(s): surgeries for plantar fasciatis, ganglion cysts, sergio's neuroma, tendon release Past Anesthesia/Blood Transfusion Reactions: Family History of Problems w/ An esthesia, Motion Sickness, Postoperative Nausea & Vomiting (PONV) Additional Past Anesthesia/Blood Transfusion Reaction / Comment(s): mother ponv Past Psychological History: No Psychological Hx Reported Smoking Status: Never smoker Past Alcohol Use History: None Reported Past Drug Use History: None Reported - Past Family History Father Family Medical History: Hypertension Additional Family Medical History / Comment(s): Pancreatitis Mother Family Medical History: Congestive Heart Failure (CHF) Medications and Allergies Home Medications Medication Instructions Recorded Confirmed Type guaiFENesin [Mucinex] 600 mg PO BID PRN 10/29/18 10/29/18 History Allergies Allergy/AdvReac Type Severity Reaction Status Date / Time Penicillins Allergy Unknown Verified 10/29/18 13:22 Physical Exam Vitals: Vital Signs Temp Pulse Resp BP Pulse Ox 10/29/18 13:00 70 130/63 93 L 10/29/18 12:02 75 10/29/18 12:00 71 130/63 100 10/29/18 11:52 68 10/29/18 11:28 130/63 94 L 10/29/18 10:04 98.4 F 82 18 158/77 98 Intake and Output 10/28/18 10/29/18 10/29/18 22:59 06:59 14:59 Other: Weight 81.647 kg Constitutional: No acute distress, conversant, pleasant Eyes: Anicteric sclerae, moist conjunctiva, no lid-lag, PERRLA ENMT: NC/AT,Oropharynx clear, no erythema, exudates Neck:Supple, FROM, no masses, or JVD, No carotid bruits; No thyromegaly Lungs: Diminished in the bases with some upper airway coarse sounds, no wheezes or rhonchi. Cardiovascular: Heart regular in rate and rhythm, No murmurs, gallops, or rubs no peripheral edema Abdominal: Soft Nontender, nom distended, no guarding, no rebound or rigidity, Normoactive bowel sounds No hepatomegaly, No splenomegaly, No palpable mass No abdominal wall hernia noted Skin: Normal temperature, tone, texture, turgor, No induration No subcutaneous nodules, No rash, lesions, No ulcers Extremities:No digital cyanosis No clubbing, Pedal pulses intact and symmetrical Radial pulses intact and symmetrical Normal gait and station, No calf tenderness Psychiatric: Alert and oriented to person, place and time, Appropriate affect Intact judgement Neuro: Muscles Strength 5/5 in all 4 extremities, Sensation to light touch grossly present throughout, Cranial nerves II-XII grossly intact. No focal sensory deficits Results CBC & Chem 7: 10/29/18 11:24 10/29/18 11:24 Labs: Abnormal Lab Results - Last 24 Hours (Table) 10/29/18 10/29/18 Range/Units 11:24 11:24 Hct 47.3 H (34.0-46.0) % D-Dimer 1.19 H (<0.60) mg/L FEU Assessment and Plan (1) Multifocal pneumonia Current Visit: Yes Status: Acute Code(s): J18.9 - PNEUMONIA, UNSPECIFIED ORGANISM SNOMED Code(s): 785853408 (2) Shortness of breath Current Visit: Yes Status: Acute Code(s): R06.02 - SHORTNESS OF BREATH SNOMED Code(s): 861484317 (3) GERD (gastroesophageal reflux disease) Current Visit: Yes Status: Acute Code(s): K21.9 - GASTRO-ESOPHAGEAL REFLUX DISEASE WITHOUT ESOPHAGITIS SNOMED Code(s): 455337714 (4) History of diverticulitis Current Visit: Yes Status: Acute Code(s): Z87.19 - PERSONAL HISTORY OF OTHER DISEASES OF THE DIGESTIVE SYSTEM SNOMED Code(s): 597543198415646 Plan: Patient is placed in observation anticipate a less than 2 midnight stay with failed outpatient treatment for multifocal pneumonia, the patient has undergone a course of Ceftinir dyspnea and a Medrol Dosepak and continues to be dyspneic, she started on empiric IV antibiotics with cefepime and azithromycin in the ER we'll switch to Levaquin and add scheduled and when necessary bronchodilator DuoNeb breathing treatments, will consult ID for any further recommendations. We'll attempt to get sputum cultures. Continue to follow her clinical course, we'll place her on PPI therapy for GI prophylaxis and continue with SCDs and heparin for DVT prophylaxis CODE STATUS: Full code Discussed plan of care with: Patient and her Anticipated discharge 1-2 days Time with Patient: Greater than 30
[2018-10-29] MEDS: LEVOFLOXACIN 750MG-D5W PMX 750 MG in DEXTROSE/WATER 1 150ML.BAG IVPB SCH (16:00)
[2018-10-29] MEDS: IPRATROPIUM-ALBUTEROL 3 ML NEB INHALATION SCH ×2 (16:26→19:38)
[2018-10-29 16:36] VITALS: BMI 28.5
[2018-10-29] MEDS: guaiFENesin 600 MG TABLET.ER PO SCH (20:22)
[2018-10-29] MEDS: ACETAMINOPHEN TAB 325 MG TAB PO PRN (22:58)
--- NOTE | 2018-10-30 00:39 | P.CONS ---
History of Present Illness - Reason for Consult Consult date: 10/29/18 Pneumonia Requesting physician: Dave Carmona - Chief Complaint Shortness of breath and cough 2 weeks - History of Present Illness Patient is a 63-year-old female started having problems with the wrist but his symptoms of shortness of breath and cough that has been mild to moderate intensity with mild sputum production has been treated in outpatient setting wit h 4 doses of IM Rocephin and Cefdinir which are pending the patient has completed on Monday however the patient continued to have symptoms of increasing shortness of breath with minimal exertion patient did have a cough which is [id number] intensity with occasional sputum production no hemoptysis the patient has been complaining of right lower and mid chest pain more of a dull aching about 5 out of 10 and worse with coughing with the symptom has the patient was evaluated by the physician on presentation no fever was noticed she did have a chest x-ray was suspicious for a right lower lobe pneumonia patient did have CT and a gram that was negative for PE which was evidence of right middle and lower lobe pneumonia, with the diagnosis of multifocal pneumonia the patient did received a dose of cefepime subsequently has been started on Levaquin 750 daily infectious disease was consulted for further recommendation regarding antibiotic therapy Review of Systems CONSTITUTIONAL: Positive for weakness. Fever EYES: No complaint. ENT: Sore throat. RESPIRATORY: As per history of present illness. CARDIOVASCULAR: No complaint. GENITOURINARY: No complaint. GASTROINTESTINAL: No complaint. MUSCULOSKELETAL: No complaint. INTEGUMENTARY: No complaint. PSYCHOLOGICAL: No complaint. ENDOCRINE: No complaint. NEUROLOGIC: No complaint. Past Medical History Additional Past Medical History / Comment(s): diverticulitis, pt reports firmness to skin lt arm where IV was placed recent hospitalization plans to call dr boyer this am to discuss for care advice History of Any Multi-Drug Resistant Organisms: None Reported Past Surgical History: Hysterectomy, Orthopedic Surgery Additional Past Surgical History / Comment(s): surgeries for plantar fasciatis, ganglion cysts, sergio's neuroma, tendon release Past Anesthesia/Blood Transfusion Reactions: Family History of Problems w/ Anesthesia, Motion Sickness, Postoperative Nausea & Vomiting (PONV) Additional Past Anesthesia/Blood Transfusion Reaction / Comm: mother ponv Past Psychological History: No Psychological Hx Reported Smoking Status: Never smoker Past Alcohol Use History: None Reported Past Drug Use History: None Reported - Past Family History Father Family Medical History: Hypertension Additional Family Medical History / Comment(s): Pancreatitis Mother Family Medical History: Congestive Heart Failure (CHF) Medications and Allergies Home Medications Medication Instructions Recorded Confirmed Type guaiFENesin [Mucinex] 600 mg PO BID PRN 10/29/18 10/29/18 History Allergies Allergy/AdvReac Type Severity Reaction Status Date / Time Penicillins Allergy Intermediate Rash/Hives Verified 10/29/18 16:45 Physical Exam Vitals: Vital Signs Temp Pulse Resp BP Pulse Ox 10/29/18 15:09 98.3 F 10/29/18 15:00 75 114/66 97 10/29/18 14:00 79 135/74 96 10/29/18 13:00 70 130/63 93 L 10/29/18 12:02 75 10/29/18 12:00 71 130/63 100 10/29/18 11:52 68 10/29/18 11:28 130/63 94 L 10/29/18 10:04 98.4 F 82 18 158/77 98 Intake and Output 10/29/18 10/29/18 10/29/18 06:59 14:59 22:59 Other: Weight 81.647 kg GENERAL DESCRIPTION: Middle-aged female lying in bed, no distress. No tachypnea or accessory muscle of respiration use. HEENT: Shows Pallor , no scleral icterus. Oral mucous membrane is dry. No pharyngeal erythema or thrush NECK: Trachea central, no thyromegaly. LUNGS: Unlabored breathing. Coarse breath sounds at the bases. No wheeze or crackle. HEART: S1, S2, regular rate and rhythm. No loud murmur ABDOMEN: Soft, no tenderness , guarding or rigidity, no organomegaly EXTREMITIES: No edema of feet. SKIN: No rash, no masses palpable. NEUROLOGICAL: The patient is awake, alert, oriented x3, mood and affect normal Results CBC & Chem 7: 10/29/18 11:24 10/29/18 11:24 Labs: Abnormal Lab Results - Last 24 Hours (Table) 10/29/18 10/29/18 Range/Units 11:24 11:24 Hct 47.3 H (34.0-46.0) % D-Dimer 1.19 H (<0.60) mg/L FEU Assessment and Plan Assessment: 1-patient presented to hospital with increasing shortness of breath and she did have a cough minimal sputum production with evidence of right middle lower lobe pneumonia that has failed to respond with outpatient Rocephin and Cefdnir with a question of atypical pneumonia versus gram-negative pneumonia 2-patient with penicillin ALLERGIES limiting the number of antibiotic safe to use Plan: 1-we will try to obtain sputum for Gram stain and culture 2-check urine for Legionella antigen 3-Levaquin 750 daily to continue and will add cefepime 2 g every 12 hours we will follow on clinical condition and culture to further adjust medication if needed Thank you for this consultation will follow this patient along with you Time with Patient: Greater than 30
[2018-10-30] MEDS: PANTOPRAZOLE 40 MG TABLET PO SCH (08:39)
[2018-10-30] MEDS: CEFEPIME 2 GM in SODIUM CHLORIDE 0.9% 100 ML IVPB SCH ×2 (08:40→20:15)
[2018-10-30] MEDS: guaiFENesin 600 MG TABLET.ER PO SCH ×2 (08:41→20:15)
[2018-10-30] MEDS ORDERED: predniSONE 10 MG TAB PO SCH (09:00)
[2018-10-30] MEDS: ACETAMINOPHEN TAB 325 MG TAB PO PRN (09:35)
[2018-10-30] MEDS: IPRATROPIUM-ALBUTEROL 3 ML NEB INHALATION SCH ×4 (09:48→19:26)
--- NOTE | 2018-10-30 15:14 | P.PN ---
Subjective Progress Note Date: 10/30/18 Patient seen in follow-up still complain of shortness of breath still maintaining her great oxygen saturations on room air, Receiving breathing treatments. Does sound wheezy ,Currently receiving steroids with prednisone. Patient remains afebrile without leukocytosis. No acute events overnight Objective - Vital Signs Vital signs: Vital Signs Temp 98.2 F 10/30/18 12:11 Pulse 80 10/30/18 13:40 Resp 16 10/30/18 12:11 BP 124/74 10/30/18 12:11 Pulse Ox 95 10/30/18 12:11 Intake & Output 10/29/18 10/30/18 10/30/18 18:59 06:59 18:59 Intake Total 500 Output Total 300 2315 500 Balance -300 -1815 -500 Weight 81.647 kg Intake: Oral 500 Output: Urine 300 2315 500 Other: # Voids 1 1 - Exam Constitutional: No acute distress, conversant, pleasant Eyes: Anicteric sclerae, moist conjunctiva, no lid-lag, PERRLA ENMT: NC/AT,Oropharynx clear, no erythema, exudates Neck:Supple, FROM, no masses, or JVD, No carotid bruits; No thyromegaly Lungs: Mild expiratory wheezes with coarse breath sounds, Clear to percussion, Normal respiratory effort, no accessory muscle use Cardiovascular: Heart regular in rate and rhythm, No murmurs, gallops, or rubs no peripheral edema Abdominal: Soft Nontender, nom distended, no guarding, no rebound or rigidity, Normoactive bowel sounds No hepatomegaly, No splenomegaly, No palpable mass No abdominal wall hernia noted Skin: Normal temperature, tone, texture, turgor, No induration No subcutaneous nodules, No rash, lesions, No ulcers Extremities:No digital cyanosis No clubbing, Pedal pulses intact and symmetrical Radial pulses intact and symmetrical Normal gait and station, No calf tenderness Psychiatric: Alert and oriented to person, place and time, Appropriate affect Intact judgement Neuro: Muscles Strength 5/5 in all 4 extremities, Sensation to light touch grossly present throughout, Cranial nerves II-XII grossly intact. No focal sensory deficits - Labs CBC & Chem 7: 10/29/18 11:24 10/29/18 11:24 Labs: Microbiology - Last 24 Hours (Table) 05/27/19 11:24 Blood Culture - Preliminary Blood No Growth after 24 hours Assessment and Plan (1) Multifocal pneumonia Narrative/Plan: * We will continue antibiotic regimen with Levaquin and cefepime per ID recommendations * Sputum obtained and will be sent for culture, receiving coverage for gram- negative versus atypicals * Patient afebrile, without leukocytosis Current Visit: Yes Status: Acute Code(s): J18.9 - PNEUMONIA, UNSPECIFIED ORGANISM SNOMED Code(s): 806164724 (2) Shortness of breath Narrative/Plan: * Secondary to pneumonia * Continue systemic steroids and DuoNeb's Current Visit: Yes Status: Acute Code(s): R06.02 - SHORTNESS OF BREATH SN OMED Code(s): 791440815 (3) GERD (gastroesophageal reflux disease) Narrative/Plan: * Continue PPI regimen is patient is also on steroids Current Visit: Yes Status: Acute Code(s): K21.9 - GASTRO-ESOPHAGEAL REFLUX DISEASE WITHOUT ESOPHAGITIS SNOMED Code(s): 599754470 (4) History of diverticulitis Current Visit: Yes Status: Acute Code(s): Z87.19 - PERSONAL HISTORY OF OTHER DISEASES OF THE DIGESTIVE SYSTEM SNOMED Code(s): 508477848959634 Plan: * Anticipated discharge 1-2 days
[2018-10-30] MEDS: methylPREDNISolone SOD SUCCI 125 MG/2 ML VIAL IV SCH ×2 (16:01→19:27)
[2018-10-30] MEDS: LEVOFLOXACIN 750MG-D5W PMX 750 MG in DEXTROSE/WATER 1 150ML.BAG IVPB SCH (16:01)
[2018-10-30] MEDS: SODIUM CHLORIDE 0.9% 1,000 ML IV SCH ×2 (16:02→20:06)
--- NOTE | 2018-10-30 19:51 | PN ---
PROGRESS NOTE DATE OF SERVICE: 10/30/2018. REASON FOR FOLLOWUP: Pneumonia. INTERVAL HISTORY: The patient is currently afebrile. The patient breathing has slightly improved. However, the patient did have some cough, mostly dry. She was able to provide sputum this morning. Apparently that has been lost. No nausea, vomiting. No abdominal pain. No diarrhea. PHYSICAL EXAMINATION: Blood pressure 123/71 with a pulse of 97, temperature 98. She is 92% on room air. General description is a middle-aged female up in the bed in no distress. Respiratory system: Unlabored breathing with bilateral expiratory wheeze. Heart S1, S2. Regular rate and rhythm. Abdomen soft, no tenderness. LABS: No new labs have been obtained today. Blood cultures have been negative. DIAGNOSTIC IMPRESSION AND PLAN: Patient admitted to the hospital with cough, difficulty breathing that has been been going on for 2 weeks, treated in the outpatient setting with oral Ceftin and Rocephin with evidence of right middle lower lobe pneumonia on the CT. We will try to obtain a sputum. Continue cefepime and Levaquin for another day and a few doses of IV Solu- Medrol as the patient is know to have significant wheezing. This was discussed in detail with the admitting physician. Re-evaluate the patient tomorrow. If improved plan to finish therapy with oral antibiotics. Continue supportive care. MMODL / IJN: [id number] /
[2018-10-30 22:00] LABS: Glucose,Whole Blood 150 mg/dL (75-99)
[2018-10-30] MEDS: INSULIN ASPART (NovoLOG) 100 UNIT/ML VIAL SQ SCH (22:03)
[2018-10-31] MEDS: methylPREDNISolone SOD SUCCI 125 MG/2 ML VIAL IV SCH ×2 (00:18→06:07)
[2018-10-31 06:07] LABS: Glucose,Whole Blood 145 mg/dL (75-99)
[2018-10-31] MEDS: SODIUM CHLORIDE 0.9% 1,000 ML IV SCH (06:07)
[2018-10-31] MEDS: INSULIN ASPART (NovoLOG) 100 UNIT/ML VIAL SQ SCH (06:25)
[2018-10-31] MEDS: guaiFENesin 600 MG TABLET.ER PO SCH (08:34)
[2018-10-31] MEDS: CEFEPIME 2 GM in SODIUM CHLORIDE 0.9% 100 ML IVPB SCH (08:35)
[2018-10-31] MEDS: PANTOPRAZOLE 40 MG TABLET PO SCH (08:35)
--- NOTE | 2018-10-31 09:27 | P.DS ---
Providers Date of admission: 10/29/18 13:34 Expected date of discharge: 10/31/18 Attending physician: Courtney Finnegan DO Consults: 10/29/18 15:02 Consult Physician Routine Consulting Provider: David Sheets Consult Reason/Comments: pneumonia with failed outpateint therapy Do you want consulting provider notified?: Yes Primary care physician: Chris Pratt - Discharge Diagnosis(es) (1) Multifocal pneumonia Current Visit: Yes Status: Acute (2) Shortness of breath Current Visit: Yes Status: Acute (3) GERD (gastroesophageal reflux disease) Current Visit: Yes Status: Acute (4) History of diverticulitis Current Visit: Yes Status: Acute Hospital Course: The patient is a 63-year-old female that was admitted with multifocal pneumonia and dyspnea after failed outpatient therapy by her PCP with IM Rocephin and Ceftinir. While hospitalized the patient was treated empirically with IV cefepime and Levaquin, sputum cultures were obtained and were still pending. The patient remained afebrile without leukocytosis, on initial workup the patient was noted to have elevated d-dimer and subsequent CTA of the chest was suggestive of multifocal pneumonia located in the right upper lobe right middle lobe and left lingula area. Patient is also noted to have coarse breath sounds and rhonchi and was started on a round of steroids with IV Solu-Medrol with scheduled and when necessary bronchodilator DuoNeb breathing treatments. With treatment the patient's condition improved and she was subsequently discharged home in stable condition and instructed to follow up with her PCP Dr. Pratt in 5-7 days. This discharge process took approximately 35 minutes. Patient was discharged home on Levaquin 750 mg by mouth daily, and albuterol inhaler. Focused exam Respiratory: Unlabored, diminished in the bases but clear to auscultation, with great saturations on room air Patient Condition at Discharge: Good Plan - Discharge Summary Discharge Rx Participant: No New Discharge Prescriptions: New Albuterol Sulfate [Albuterol Sulfate Hfa] 4 puff PO Q4-6H PRN 30 Days #1 inhaler PRN Reason: Cough/shortness of breath Levofloxacin [Levaquin] 750 mg PO DAILY 7 Days #7 tab Continue guaiFENesin [Mucinex] 600 mg PO BID PRN PRN Reason: Cough Discharge Medication List guaiFENesin [Mucinex] 600 mg PO BID PRN 10/29/18 [History] Albuterol Sulfate [Albuterol Sulfate Hfa] 4 puff PO Q4-6H PRN 30 Days #1 inhaler 10/31/18 [Rx] Levofloxacin [Levaquin] 750 mg PO DAILY 7 Days #7 tab 10/31/18 [Rx] Follow up Appointment(s)/Referral(s): Chris Pratt MD [Primary Care Provider] - 1-2 days Discharge Disposition: HOME SELF-CARE
[2018-10-31 09:37] VITALS: BP 123/75; RESP 20; TEMP 97.7
[2018-10-31] MEDS: IPRATROPIUM-ALBUTEROL 3 ML NEB INHALATION SCH (09:51)
[2018-10-31 09:54] VITALS: PULSE 84
== END 2018-10-31 10:44 | disposition home or self-care (01) | DRG 195 ==
LOC: EC 09:49 → 6PED 13:34
PROVIDERS: ADMIT Internal Medicine; ATTEND Internal Medicine
DX: J18.9 Pneumonia, unspecified organism (principal); K21.9 Gastro-esophageal reflux disease without esophagitis; Z90.710 Acquired absence of both cervix and uterus; Z88.0 Allergy status to penicillin; Z82.49 Family history of ischemic heart disease and other diseases of the circulatory system; Z98.890 Other specified postprocedural states; Z87.19 Personal history of other diseases of the digestive system
CPT/HCPCS: 36415; 71046; 71275; 80053; 84484; 85025; 85379; 85610; 85730; 87040; 87070; 87205; 87449; 93005; 94640; 96361; 96365; 96367; 99285

== ENCOUNTER 2020-05-31 22:16 | Emergency (ER) | payer BC ==
[2020-05-31] MEDS ORDERED: SODIUM CHLORIDE 0.9% 1,000 ML IV STA (22:40)
[2020-05-31] MEDS ORDERED: KETOROLAC 15 MG/ML 1 ML VIAL IVP STA (22:41)
--- NOTE | 2020-05-31 23:00 | ED ---
Weakness HPI - General Chief complaint: Weakness Stated complaint: Weakness,Body aches Time Seen by Provider: 05/31/20 22:26 Source: patient Mode of arrival: ambulatory - History of Present Illness Initial comments: Patient is a 65-year-old healthy female presenting to the emergency Department with complaints of weakness and back and rib pain for the last 3 days. Patient states she is also had a cough for the last few days. Patient states last time she had this kind of body aches and rib pain that she had pneumonia. Patient states she has been eating less over the past few days and drinking less water as well. She denies any nausea or vomiting, no abdominal pain. She denies any shortness of breath but states it does hurt to take in a deep breath. She denies any falls or trauma. She states she does not normally have back pain. She denies history of blood clots or PE. She takes daily Protonix, no other medicines. She denies any recent antibiotics. She denies any recent fever or chills. She does admit to sick contacts in the past few weeks, but states she has been trying to stay away from them. She has no further complaints at this time. Upon arrival to the ER, her vital signs are stable. - Related Data Home Medications Medication Instructions Recorded Confirmed guaiFENesin [Mucinex] 600 mg PO BID PRN 10/29/18 10/29/18 Previous Rx's Medication Instructions Recorded Albuterol Sulfate [Albuterol 4 puff PO Q4-6H PRN 30 Days #1 10/31/18 Sulfate Hfa] inhaler Levofloxacin [Levaquin] 750 mg PO DAILY 7 Days #7 tab 10/31/18 Pantoprazole Sodium [Protonix] 40 mg PO DAILY #30 tablet. 10/31/18 Allergies Allergy/AdvReac Type Severity Reaction Status Date / Time Penicillins Allergy Intermediate Rash/Hives Verified 10/29/18 16:45 Review of Systems ROS Statement: Those systems with pertinent positive or pertinent negative responses have been documented in the HPI. ROS Other: All systems not noted in ROS Statement are negative. Past Medical History Past Medical History: Asthma Additional Past Medical History / Comment(s): diverticulitis, pt reports firmness to skin lt arm where IV was placed recent hospitalization plans to call dr boyer this am to discuss for care advice History of Any Multi-Drug Resistant Organisms: None Reported Past Surgical History: Hysterectomy, Orthopedic Surgery Additional Past Surgical History / Comment(s): surgeries for plantar fasciatis, ganglion cysts, sergio's neuroma, tendon release Past Anesthesia/Blood Transfusion Reactions: Family History of Problems w/ Ane sthesia, Motion Sickness, Postoperative Nausea & Vomiting (PONV) Additional Past Anesthesia/Blood Transfusion Reaction / Comment(s): mother ponv Past Psychological History: No Psychological Hx Reported Past Alcohol Use History: None Reported Past Drug Use History: None Reported - Past Family History Father Family Medical History: Hypertension Additional Family Medical History / Comment(s): Pancreatitis Mother Family Medical History: Congestive Heart Failure (CHF) General Exam - General Exam Comments Initial Comments: GENERAL: Patient is well-developed and well-nourished. Patient is nontoxic and in no acute distress. HEAD: Atraumatic, normocephalic. EYES: Pupils equal round and reactive to light, extraocular movements intact, sclera anicteric, conjunctiva are normal. Eyelids were unremarkable. ENT: TMs normal, nares patent, oropharynx clear without exudates. Moist mucous membranes. NECK: Normal range of motion, supple without lymphadenopathy or JVD. LUNGS: Unlabored respirations. Breath sounds clear to auscultation bilaterally and equal. No wheezes rales or rhonchi. HEART: Regular rate and rhythm without murmurs, rubs or gallops. ABDOMEN: Soft, nontender, normoactive bowel sounds. No guarding, no rebound. No masses appreciated. : Deferred MUSCULOSKELETAL: Normal extremities with adequate strength and normal range of motion, no pitting or edema. No clubbing or cyanosis. Mild pain with palpation of the entire thoracic area, she also has pain with the front ribs. NEUROLOGICAL: Patient is alert and oriented x 3. Motor and sensory are also intact. Cranial nerves II through XII grossly intact. Symmetrical smile. Normal speech, normal gait. PSYCH: Normal mood, normal affect. SKIN: Warm, Dry, normal turgor, no rashes or lesions noted. Course Vital Signs 05/31/20 05/31/20 06/01/20 22:23 23:23 00:44 Temperature 99.2 F 98.4 F 98.2 F Pulse Rate 86 75 64 Respiratory 16 18 18 Rate Blood Pressure 137/90 141/79 139/79 O2 Sat by Pulse 98 94 L 96 Oximetry EKG Findings - EKG Comments: EKG Findings:: Normal sinus rhythm, possible left atrial enlargement, no signs of acute process. Similar to previous EKG on 10/29/2018. Ventricular rate 84, VT interval 180, QT 364. Medical Decision Making - Medical Decision Making Patient is a 65-year-old healthy female presenting for weakness, a cough 3 days, decreased appetite, body aches. She is afebrile, rest of vitals are normal. EKG shows no acute process. Chest x-ray shows no acute process. Lab work shows an elevated d-dimer at 2.04. Lactic acid is normal at 1.0, troponin is normal, urine shows no evidence of infection. Rapid Covid is positive. I di d do a CT angiogram of the chest to rule out PE, there is no acute findings. Patient received fluids and Toradol for pain. She does report improvement in her symptoms. I discussed these findings with her. Her vital signs remained stable in the ER. I recommended continuing to increase her fluid intake, alternating Tylenol and Motrin for body aches. She can follow up with her PCP. Return parameters were discussed with the patient and she verbalized understanding. Case discussed with Dr. Pena. - Lab Data Result diagrams: 05/31/20 22:53 05/31/20 22:53 Lab Results 05/31/20 05/31/20 05/31/20 Range/Units 22:53 22:53 22:53 WBC 3.6 L (3.8-10.6) k/uL RBC 5.15 (3.80-5.40) m/uL Hgb 16.9 H (11.4-16.0) gm/dL Hct 48.0 H (34.0-46.0) % MCV 93.1 (80.0-100.0) fL MCH 32.8 (25.0-35.0) pg MCHC 35.2 (31.0-37.0) g/dL RDW 12.4 (11.5-15.5) % Plt Count 169 (150-450) k/uL MPV 6.9 Neutrophils % 60 % Lymphocytes % 28 % Monocytes % 9 % Eosinophils % 0 % Basophils % 1 % Neutrophils # 2.2 (1.3-7.7) k/uL Lymphocytes # 1.0 (1.0-4.8) k/uL Monocytes # 0.3 (0-1.0) k/uL Eosinophils # 0.0 (0-0.7) k/uL Basophils # 0.0 (0-0.2) k/uL PT 10.4 (9.0-12.0) sec INR 1.0 (<1.2) APTT 29.0 (22.0-30.0) sec D-Dimer 2.04 H (<0.60) mg/L FEU Sodium 134 L (137-145) mmol/L Potassium 4.1 (3.5-5.1) mmol/L Chloride 107 (98-107) mmol/L Carbon Dioxide 20 L (22-30) mmol/L Anion Gap 7 mmol/L BUN 13 (7-17) mg/dL Creatinine 0.71 (0.52-1.04) mg/dL Est GFR (CKD-EPI)AfAm >90 (>60 ml/min/1.73 sqM) Est GFR (CKD-EPI)NonAf 89 (>60 ml/min/1.73 sqM) Glucose 99 (74-99) mg/dL Plasma Lactic Acid Aubrey (0.7-2.0) mmol/L Calcium 8.9 (8.4-10.2) mg/dL Magnesium 1.9 (1.6-2.3) mg/dL Total Bilirubin 0.6 (0.2-1.3) mg/dL AST 42 H (14-36) U/L ALT 30 (4-34) U/L Alkaline Phosphatase 73 (38-126) U/L Troponin I (0.000-0.034) ng/mL C-Reactive Protein 8.9 (<10.0) mg/L Total Protein 6.9 (6.3-8.2) g/dL Albumin 4.0 (3.5-5.0) g/dL Urine Color Urine Appearance (Clear) Urine pH (5.0-8.0) Ur Specific [place] (1.001-1.035) Urine Protein (Negative) Urine Glucose (UA) (Negative) Urine Ketones (Negative) Urine Blood (Negative) Urine Nitrite (Negative) Urine Bilirubin (Negative) Urine Urobilinogen (<2.0) mg/dL Ur Leukocyte Esterase (Negative) Urine RBC (0-5) /hpf Urine WBC (0-5) /hpf Ur Squamous Epith Cells (0-4) /hpf Urine Bacteria (None) /hpf Urine Mucus (None) /hpf Coronavirus (PCR) (Not Detectd) 05/31/20 05/31/20 05/31/20 Range/Units 22:53 22:53 22:57 WBC (3.8-10.6) k/uL RBC (3.80-5.40) m/uL Hgb (11.4-16.0) gm/dL Hct (34.0-46.0) % MCV (80.0-100.0) fL MCH (25.0-35.0) pg MCHC (31.0-37.0) g/dL RDW (11.5-15.5) % Plt Count (150-450) k/uL MPV Neutrophils % % Lymphocytes % % Monocytes % % Eosinophils % % Basophils % % Neutrophils # (1.3-7.7) k/uL Lymphocytes # (1.0-4.8) k/uL Monocytes # (0-1.0) k/uL Eosinophils # (0-0.7) k/uL Basophils # (0-0.2) k/uL PT (9.0-12.0) sec INR (<1.2) APTT (22.0-30.0) sec D-Dimer (<0.60) mg/L FEU Sodium (137-145) mmol/L Potassium (3.5-5.1) mmol/L Chloride (98-107) mmol/L Carbon Dioxide (22-30) mmol/L Anion Gap mmol/L BUN (7-17) mg/dL Creatinine (0.52-1.04) mg/dL Est GFR (CKD-EPI)AfAm (>60 ml/min/1.73 sqM) Est GFR (CKD-EPI)NonAf (>60 ml/min/1.73 sqM) Glucose (74-99) mg/dL Plasma Lactic Acid Aubrey 1.0 (0.7-2.0) mmol/L Calcium (8.4-10.2) mg/dL Magnesium (1.6-2.3) mg/dL Total Bilirubin (0.2-1.3) mg/dL AST (14-36) U/L ALT (4-34) U/L Alkaline Phosphatase (38-126) U/L Troponin I <0.012 (0.000-0.034) ng/mL C-Reactive Protein (<10.0) mg/L Total Protein (6.3-8.2) g/dL Albumin (3.5-5.0) g/dL Urine Color Urine Appearance (Clear) Urine pH (5.0-8.0) Ur Specific [place] (1.001-1.035) Urine Protein (Negative) Urine Glucose (UA) (Negative) Urine Ketones (Negative) Urine Blood (Negative) Urine Nitrite (Negative) Urine Bilirubin (Negative) Urine Urobilinogen (<2.0) mg/dL Ur Leukocyte Esterase (Negative) Urine RBC (0-5) /hpf Urine WBC (0-5) /hpf Ur Squamous Epith Cells (0-4) /hpf Urine Bacteria (None) /hpf Urine Mucus (None) /hpf Coronavirus (PCR) Detected A (Not Detectd) 05/31/20 Range/Units 23:18 WBC (3.8-10.6) k/uL RBC (3.80-5.40) m/uL Hgb (11.4-16.0) gm/dL Hct (34.0-46.0) % MCV (80.0-100.0) fL MCH (25.0-35.0) pg MCHC (31.0-37.0) g/dL RDW (11.5-15.5) % Plt Count (150-450) k/uL MPV Neutrophils % % Lymphocytes % % Monocytes % % Eosinophils % % Basophils % % Neutrophils # (1.3-7.7) k/uL Lymphocytes # (1.0-4.8) k/uL Monocytes # (0-1.0) k/uL Eosinophils # (0-0.7) k/uL Basophils # (0-0.2) k/uL PT (9.0-12.0) sec INR (<1.2) APTT (22.0-30.0) sec D-Dimer (<0.60) mg/L FEU Sodium (137-145) mmol/L Potassium (3.5-5.1) mmol/L Chloride (98-107) mmol/L Carbon Dioxide (22-30) mmol/L Anion Gap mmol/L BUN (7-17) mg/dL Creatinine (0.52-1.04) mg/dL Est GFR (CKD-EPI)AfAm (>60 ml/min/1.73 sqM) Est GFR (CKD-EPI)NonAf (>60 ml/min/1.73 sqM) Glucose (74-99) mg/dL Plasma Lactic Acid Aubrey (0.7-2.0) mmol/L Calcium (8.4-10.2) mg/dL Magnesium (1.6-2.3) mg/dL Total Bilirubin (0.2-1.3) mg/dL AST (14-36) U/L ALT (4-34) U/L Alkaline Phosphatase (38-126) U/L Troponin I (0.000-0.034) ng/mL C-Reactive Protein (<10.0) mg/L Total Protein (6.3-8.2) g/dL Albumin (3.5-5.0) g/dL Urine Color Yellow Urine Appearance Cloudy H (Clear) Urine pH 6.5 (5.0-8.0) Ur Specific [place] 1.020 (1.001-1.035) Urine Protein Trace H (Negative) Urine Glucose (UA) Negative (Negative) Urine Ketones 1+ H (Negative) Urine Blood Negative (Negative) Urine Nitrite Negative (Negative) Urine Bilirubin Negative (Negative) Urine Urobilinogen <2.0 (<2.0) mg/dL Ur Leukocyte Esterase Moderate H (Negative) Urine RBC 1 (0-5) /hpf Urine WBC 3 (0-5) /hpf Ur Squamous Epith Cells 5 H (0-4) /hpf Urine Bacteria Occasional H (None) /hpf Urine Mucus Occasional H (None) /hpf Coronavirus (PCR) (Not Detectd) Disposition Clinical Impression: COVID-19, Dehydration, Body aches Disposition: HOME SELF-CARE Condition: Stable Instructions (If sedation given, give patient instructions): Viral Syndrome (ED) Additional Instructions: Please return to the Emergency Department if symptoms worsen or any other conc erns. Rapid Covid test today is positive. Rest of workup is normal. Recommended to continue increasing fluids. May alternate between Tylenol and Motrin for body aches. Follow-up with your PCP. Is patient prescribed a controlled substance at d/c from ED?: No Referrals: Chris Pratt MD [Primary Care Provider] - 1-2 days
[2020-05-31 23:18] LABS: Basophils % (A) 1 %; Eosinophils % (A) 0 %; HGB 16.9 gm/dL (11.4-16.0); Lymphocytes % (A) 28 %; MCH 32.8 pg (25.0-35.0); MCHC 35.2 g/dL (31.0-37.0); MCV 93.1 fL (80.0-100.0); Mean Platelet Volume 6.9; Monocytes # (A) 0.3 k/uL (0-1.0); Monocytes % (A) 9 %; Neutrophils # (A) 2.2 k/uL (1.3-7.7); Neutrophils % (A) 60 %; Platelet Count 169 k/uL (150-450); RBC 5.15 m/uL (3.80-5.40); RDW 12.4 % (11.5-15.5); WBC 3.6 k/uL (3.8-10.6)
--- NOTE | 2020-05-31 23:19 | XR ---
EXAMINATION TYPE: XR chest 2V DATE OF EXAM: 05/31/2020 COMPARISON: 10/29/2018 HISTORY: Weakness TECHNIQUE: 2 views FINDINGS: Heart is normal. Lungs are clear of consolidation. There is no pleural effusion. There are no hilar masses. Bony thorax is intact. IMPRESSION: Normal chest. There is clearing of the right middle lobe pneumonia compared to old exam.
[2020-05-31 23:25] VITALS: RESP 18
[2020-05-31 23:32] LABS: Appearance,Urine Cloudy (Clear); Bacteria,Urine Occasional /hpf; Bilirubin,Urine Negative (Negative); Blood,Urine Negative (Negative); Color,Urine Yellow; Glucose,Urine (UA) Negative (Negative); Ketones,Urine 1+ (Negative); Leukocyte Esterase,Urine Moderate (Negative); Mucus,Urine Occasional /hpf; Nitrite,Urine Negative (Negative); PH, Urine 6.5 (5.0-8.0); Protein,Urine Trace (Negative); RBC,Urine 1 /hpf (0-5); Squamous Epithelial Cell,Urine 5 /hpf (0-4); Urobilinogen,Urine <2.0 mg/dL (<2.0); WBC,Urine 3 /hpf (0-5)
[2020-05-31 23:37] LABS: Prothrombin Time 10.4 sec (9.0-12.0)
[2020-05-31 23:43] LABS: ALT 30 U/L (4-34); AST 42 U/L (14-36); African American GFR (CKD) >90 (>60 ml/min/1.73 sqM); Alkaline Phosphatase 73 U/L (38-126); Anion Gap 7 mmol/L; Blood Urea Nitrogen 13 mg/dL (7-17); C Reactive Protein 8.9 mg/L (<10.0); Calcium 8.9 mg/dL (8.4-10.2); Carbon Dioxide 20 mmol/L (22-30); Chloride 107 mmol/L (98-107); Glucose 99 mg/dL (74-99); Magnesium 1.9 mg/dL (1.6-2.3); Non-African American GFR(CKD) 89 (>60 ml/min/1.73 sqM); Potassium 4.1 mmol/L (3.5-5.1); Sodium 134 mmol/L (137-145); Total Bilirubin 0.6 mg/dL (0.2-1.3); Total Protein 6.9 g/dL (6.3-8.2)
[2020-05-31 23:47] LABS: D-Dimer 2.04 mg/L FEU (<0.60)
--- NOTE | 2020-06-01 00:42 | CT ---
EXAM: CT Angiography Chest With Intravenous Contrast CLINICAL HISTORY: ITS.REASON CT Reason: PE suspected, intermediate prob, positive dimer TECHNIQUE: Axial computed tomographic angiography images of the chest with intravenous contrast. CTDI is 20.77 mGy and DLP is 307.2 mGy-cm. This CT exam was performed using one or more of the following dose reduction techniques: automated exposure control, adjustment of the mA and/or kV according to patient size, and/or use of iterative reconstruction technique. MIP reconstructed images were created and reviewed. COMPARISON: October 29, 2018 FINDINGS: Pulmonary arteries: The pulmonary arterial tree is well opacified with contrast. No pulmonary emboli are identified. Aorta: The ascending aortic arch is upper normal in size measuring 3.6 cm. There is no aneurysm or dissection. No significant atherosclerotic changes. Lungs: There is a trace amount of subsegmental atelectasis in the costophrenic angles. The lungs are otherwise clear. No mass. Pleural space: Unremarkable. No significant effusion. No pneumothorax. Heart: Unremarkable. No cardiomegaly. No significant pericardial effusion. No evidence of RV dysfunction. Bones/joints: Mild degenerative changes in the lower thoracic spine. No acute fracture or destructive bone lesion. No dislocation. Soft tissues: Unremarkable. Lymph nodes: Unremarkable. No enlarged lymph nodes. IMPRESSION: No evidence of pulmonary embolism or acute aortic abnormality. Trace amount of bibasilar subsegmental atelectasis. No acute infiltrates or acute process seen within the chest.
[2020-06-01 00:45] VITALS: BP 139/79; PULSE 64; TEMP 98.2
[2020-06-01] MEDS ORDERED: traMADol 50 MG STARTER PACK 3 TAB BTL PO STA (00:48)
== END 2020-06-01 01:00 | disposition home or self-care (01) ==
LOC: EC 22:16
DX: U07.1 COVID-19 (principal); E86.0 Dehydration; R79.89 Other specified abnormal findings of blood chemistry; Z88.0 Allergy status to penicillin
CPT/HCPCS: 36415; 93005; 85379; 80053; 83605; 83735; 84484; 85025; 85610; 85730; 86140; 81001; 87635; 71046; 71275; 99285; 96374; 96361; J1885; Q9967

== ENCOUNTER 2020-10-17 13:53 | Emergency (ER) | payer MEDICARE ==
[2020-10-17 14:03] VITALS: TEMP 97.2
[2020-10-17] MEDS ORDERED: ONDANSETRON 4 MG/2 ML VIAL IVP STA (14:25)
[2020-10-17] MEDS ORDERED: SODIUM CHLORIDE 0.9% 1,000 ML IV STA (14:25)
[2020-10-17] MEDS ORDERED: KETOROLAC 15 MG/ML 1 ML VIAL IVP STA (14:26)
--- NOTE | 2020-10-17 14:51 | ED ---
Weakness HPI - General Chief complaint: Weakness Stated complaint: Unable to eat, Headache Time Seen by Provider: 10/17/20 14:11 Source: patient Mode of arrival: ambulatory Limitations: no limitations - History of Present Illness Initial comments: 65 year-old female patient presents to the emergency department for evaluation of weakness, fatigue, and body aches. States she is also experiencing shortness of breath, bilateral shoulder pain, nausea, and diarrhea. States she has been unable to eat or drink. Had mild fever and headache at onset of symptoms. Symptoms started three days ago. States she did have COVID-19 in May 2020. States she is having some lower abdominal discomfort. Denies any hematochezia or melena. Denies any cough. Denies hematuria, dysuria, urinary urgency, or frequency. Patient denies any recent rash, chest pain, numbness, tingling, dizziness, visual changes, or any other complaints. - Related Data Home Medications Medication Instructions Recorded Confirmed guaiFENesin [Mucinex] 600 mg PO BID PRN 10/29/18 10/29/18 Previous Rx's Medication Instructions Recorded Albuterol Sulfate [Albuterol 4 puff PO Q4-6H PRN 30 Days #1 10/31/18 Sulfate Hfa] inhaler Levofloxacin [Levaquin] 750 mg PO DAILY 7 Days #7 tab 10/31/18 Pantoprazole Sodium [Protonix] 40 mg PO DAILY #30 tablet. 10/31/18 Ondansetron [Zofran ODT] 4 mg PO Q8HR PRN #10 tab 10/17/20 Allergies Allergy/AdvReac Type Severity Reaction Status Date / Time Penicillins Allergy Intermediate Rash/Hives Verified 10/17/20 14:02 Review of Systems ROS Statement: Those systems with pertinent positive or pertinent negative responses have been documented in the HPI. ROS Other: All systems not noted in ROS Statement are negative. Past Medical History Past Medical History: Asthma Additional Past Medical History / Comment(s): diverticulitis, pt reports firmness to skin lt arm where IV was placed recent hospitalization plans to call dr boyer this am to discuss for care advice History of Any Multi-Drug Resistant Organisms: None Reported Past Surgical History: Hysterectomy, Orthopedic Surgery Additional Past Surgical History / Comment(s): surgeries for plantar fasciatis, ganglion cysts, sergio's neuroma, tendon release Past Anesthesia/Blood Transfusion Reactions: Family History of Problems w/ Anesthesia, Motion Sickness, Postoperative Nausea & Vomiting (PONV) Additional Past Anesthesia/Blood Transfusion Reaction / Comment(s): mother ponv Past Psychological History: No Psychological Hx Reported Smoking Status: Current every day smoker Past Alcohol Use History: None Reported Past Drug Use History: None Reported - Past Family History Father Family Medical History: Hypertension Additional Family Medical History / Comment(s): Pancreatitis Mother Family Medical History: Congestive Heart Failure (CHF) General Exam Limitations: no limitations General appearance: alert, in no apparent distress, other (This is a well- developed, well-nourished adult female patient in no acute distress. Vital signs upon presentation are temperature 97.2F, pulse 76, respirations 20, blood pressure 132/74, pulse ox 99% on room air) Eye exam: Present: normal appearance, PERRL, EOMI. Absent: scleral icterus, conjunctival injection, periorbital swelling ENT exam: Present: normal exam, normal oropharynx, mucous membranes moist Respiratory exam: Present: normal lung sounds bilaterally. Absent: respiratory distress, wheezes, rales, rhonchi, stridor Cardiovascular Exam: Present: regular rate, normal rhythm, normal heart sounds. Absent: systolic murmur, diastolic murmur, rubs, gallop, clicks GI/Abdominal exam: Present: soft, tenderness (mild lower abdominal), normal bowel sounds. Absent: distended, guarding, rebound, rigid Neurological exam: Present: alert, oriented X3, CN II-XII intact Psychiatric exam: Present: normal affect, normal mood Skin exam: Present: warm, dry, intact, normal color. Absent: rash Course Vital Signs 10/17/20 10/17/20 14:00 16:06 Temperature 97.2 F L Pulse Rate 76 75 Respiratory 20 16 Rate Blood Pressure 132/74 125/71 O2 Sat by Pulse 99 99 Oximetry EKG Findings - EKG Comments: EKG Findings:: EKG obtained at 1438 shows normal sinus rhythm with a ventricular rate is 72, NM interval 182, QRS duration 82, QT 376, QTc 411. No evidence of ST elevation or depression. Medical Decision Making - Medical Decision Making 65 year-old female patient presented to the emergency department today for evaluation of body aches, shortness of breath, diarrhea. Physical examination was unremarkable. Abdomen soft and very mildly tender over the lower abdomen. She is afebrile. White blood cell count is normal. Cold did test was negative. She will be discharged home with prescription for Zofran. She is instructed to follow-up with the primary care physician for recheck in 1-2 days. Return para meters were discussedd in detail. She verbalizes understanding and agrees with this plan. Case discussed with my attending Dr. Ruiz. - Lab Data Result diagrams: 10/17/20 15:05 10/17/20 15:05 Lab Results 10/17/20 10/17/20 10/17/20 Range/Units 15:05 15:05 15:05 WBC 4.6 (3.8-10.6) k/uL RBC 5.27 (3.80-5.40) m/uL Hgb 17.4 H (11.4-16.0) gm/dL Hct 48.3 H (34.0-46.0) % MCV 91.7 (80.0-100.0) fL MCH 33.1 (25.0-35.0) pg MCHC 36.0 (31.0-37.0) g/dL RDW 11.9 (11.5-15.5) % Plt Count 170 (150-450) k/uL MPV 6.6 Neutrophils % 67 % Lymphocytes % 23 % Monocytes % 7 % Eosinophils % 1 % Basophils % 0 % Neutrophils # 3.1 (1.3-7.7) k/uL Lymphocytes # 1.1 (1.0-4.8) k/uL Monocytes # 0.3 (0-1.0) k/uL Eosinophils # 0.1 (0-0.7) k/uL Basophils # 0.0 (0-0.2) k/uL PT 10.4 (9.0-12.0) sec INR 1.0 (<1.2) APTT 25.2 (22.0-30.0) sec Sodium 137 (137-145) mmol/L Potassium 3.7 (3.5-5.1) mmol/L Chloride 104 (98-107) mmol/L Carbon Dioxide 26 (22-30) mmol/L Anion Gap 7 mmol/L BUN 21 H (7-17) mg/dL Creatinine 0.78 (0.52-1.04) mg/dL Est GFR (CKD-EPI)AfAm >90 (>60 ml/min/1.73 sqM) Est GFR (CKD-EPI)NonAf 80 (>60 ml/min/1.73 sqM) Glucose 92 (74-99) mg/dL Plasma Lactic Acid Aubrey (0.7-2.0) mmol/L Calcium 9.3 (8.4-10.2) mg/dL Magnesium 2.1 (1.6-2.3) mg/dL Total Bilirubin 0.7 (0.2-1.3) mg/dL AST 30 (14-36) U/L ALT 17 (4-34) U/L Alkaline Phosphatase 71 (38-126) U/L Troponin I (0.000-0.034) ng/mL Total Protein 6.8 (6.3-8.2) g/dL Albumin 4.1 (3.5-5.0) g/dL Urine Color Urine Appearance (Clear) Urine pH (5.0-8.0) Ur Specific Fritch (1.001-1.035) Urine Protein (Negative) Urine Glucose (UA) (Negative) Urine Ketones (Negative) Urine Blood (Negative) Urine Nitrite (Negative) Urine Bilirubin (Negative) Urine Urobilinogen (<2.0) mg/dL Ur Leukocyte Esterase (Negative) Urine RBC (0-5) /hpf Urine WBC (0-5) /hpf Ur Squamous Epith Cells (0-4) /hpf Urine Bacteria (None) /hpf Urine Mucus (None) /hpf Coronavirus (PCR) (Not Detectd) 10/17/20 10/17/20 10/17/20 Range/Units 15:05 15:05 15:05 WBC (3.8-10.6) k/uL RBC (3.80-5.40) m/uL Hgb (11.4-16.0) gm/dL Hct (34.0-46.0) % MCV (80.0-100.0) fL MCH (25.0-35.0) pg MCHC (31.0-37.0) g/dL RDW (11.5-15.5) % Plt Count (150-450) k/uL MPV Neutrophils % % Lymphocytes % % Monocytes % % Eosinophils % % Basophils % % Neutrophils # (1.3-7.7) k/uL Lymphocytes # (1.0-4.8) k/uL Monocytes # (0-1.0) k/uL Eosinophils # (0-0.7) k/uL Basophils # (0-0.2) k/uL PT (9.0-12.0) sec INR (<1.2) APTT (22.0-30.0) sec Sodium (137-145) mmol/L Potassium (3.5-5.1) mmol/L Chloride (98-107) mmol/L Carbon Dioxide (22-30) mmol/L Anion Gap mmol/L BUN (7-17) mg/dL Creatinine (0.52-1.04) mg/dL Est GFR (CKD-EPI)AfAm (>60 ml/min/1.73 sqM) Est GFR (CKD-EPI)NonAf (>60 ml/min/1.73 sqM) Glucose (74-99) mg/dL Plasma Lactic Acid Aubrey 1.2 (0.7-2.0) mmol/L Calcium (8.4-10.2) mg/dL Magnesium (1.6-2.3) mg/dL Total Bilirubin (0.2-1.3) mg/dL AST (14-36) U/L ALT (4-34) U/L Alkaline Phosphatase (38-126) U/L Troponin I <0.012 (0.000-0.034) ng/mL Total Protein (6.3-8.2) g/dL Albumin (3.5-5.0) g/dL Urine Color Urine Appearance (Clear) Urine pH (5.0-8.0) Ur Specific Fritch (1.001-1.035) Urine Protein (Negative) Urine Glucose (UA) (Negative) Urine Ketones (Negative) Urine Blood (Negative) Urine Nitrite (Negative) Urine Bilirubin (Negative) Urine Urobilinogen (<2.0) mg/dL Ur Leukocyte Esterase (Negative) Urine RBC (0-5) /hpf Urine WBC (0-5) /hpf Ur Squamous Epith Cells (0-4) /hpf Urine Bacteria (None) /hpf Urine Mucus (None) /hpf Coronavirus (PCR) Not Detected (Not Detectd) 10/17/20 Range/Units 16:06 WBC (3.8-10.6) k/uL RBC (3.80-5.40) m/uL Hgb (11.4-16.0) gm/dL Hct (34.0-46.0) % MCV (80.0-100.0) fL MCH (25.0-35.0) pg MCHC (31.0-37.0) g/dL RDW (11.5-15.5) % Plt Count (150-450) k/uL MPV Neutrophils % % Lymphocytes % % Monocytes % % Eosinophils % % Basophils % % Neutrophils # (1.3-7.7) k/uL Lymphocytes # (1.0-4.8) k/uL Monocytes # (0-1.0) k/uL Eosinophils # (0-0.7) k/uL Basophils # (0-0.2) k/uL PT (9.0-12.0) sec INR (<1.2) APTT (22.0-30.0) sec Sodium (137-145) mmol/L Potassium (3.5-5.1) mmol/L Chloride (98-107) mmol/L Carbon Dioxide (22-30) mmol/L Anion Gap mmol/L BUN (7-17) mg/dL Creatinine (0.52-1.04) mg/dL Est GFR (CKD-EPI)AfAm (>60 ml/min/1.73 sqM) Est GFR (CKD-EPI)NonAf (>60 ml/min/1.73 sqM) Glucose (74-99) mg/dL Plasma Lactic Acid Aubrey (0.7-2.0) mmol/L Calcium (8.4-10.2) mg/dL Magnesium (1.6-2.3) mg/dL Total Bilirubin (0.2-1.3) mg/dL AST (14-36) U/L ALT (4-34) U/L Alkaline Phosphatase (38-126) U/L Troponin I (0.000-0.034) ng/mL Total Protein (6.3-8.2) g/dL Albumin (3.5-5.0) g/dL Urine Color Yellow Urine Appearance Cloudy H (Clear) Urine pH 6.0 (5.0-8.0) Ur Specific Fritch 1.031 (1.001-1.035) Urine Protein 1+ H (Negative) Urine Glucose (UA) Negative (Negative) Urine Ketones 2+ H (Negative) Urine Blood Trace H (Negative) Urine Nitrite Negative (Negative) Urine Bilirubin Negative (Negative) Urine Urobilinogen <2.0 (<2.0) mg/dL Ur Leukocyte Esterase Large H (Negative) Urine RBC 10 H (0-5) /hpf Urine WBC 8 H (0-5) /hpf Ur Squamous Epith Cells 4 (0-4) /hpf Urine Bacteria Occasional H (None) /hpf Urine Mucus Many H (None) /hpf Coronavirus (PCR) (Not Detectd) - EKG Data -: EKG Interpreted by [facility] - Radiology Data Radiology results: report reviewed, image reviewed One view x-ray of the chest is obtained. Report reviewed in its entirety. Impression by Dr. Butler shows no active cardiopulmonary disease. No change. Disposition Clinical Impression: Viral syndrome Disposition: HOME SELF-CARE Condition: Good Instructions (If sedation given, give patient instructions): Viral Syndrome (ED) Additional Instructions: Increase fluids. Use medication as needed. Follow up with your primary care physician for recheck in 1-2 days. Return for any new, worsening, or concerning symptoms. Prescriptions: Ondansetron [Zofran ODT] 4 mg PO Q8HR PRN #10 tab PRN Reason: Nausea Is patient prescribed a controlled substance at d/c from ED?: No Referrals: Radha Huston MD [Primary Care Provider] - 1-2 days Time of Disposition: 16:53
[2020-10-17 15:14] LABS: Basophils % (A) 0 %; Eosinophils # (A) 0.1 k/uL (0-0.7); Eosinophils % (A) 1 %; HCT 48.3 % (34.0-46.0); HGB 17.4 gm/dL (11.4-16.0); Lymphocytes # (A) 1.1 k/uL (1.0-4.8); Lymphocytes % (A) 23 %; MCH 33.1 pg (25.0-35.0); MCV 91.7 fL (80.0-100.0); Mean Platelet Volume 6.6; Monocytes # (A) 0.3 k/uL (0-1.0); Monocytes % (A) 7 %; Neutrophils # (A) 3.1 k/uL (1.3-7.7); Neutrophils % (A) 67 %; Platelet Count 170 k/uL (150-450); RBC 5.27 m/uL (3.80-5.40); RDW 11.9 % (11.5-15.5); WBC 4.6 k/uL (3.8-10.6)
[2020-10-17 15:25] LABS: ALT 17 U/L (4-34); AST 30 U/L (14-36); African American GFR (CKD) >90 (>60 ml/min/1.73 sqM); Albumin 4.1 g/dL (3.5-5.0); Alkaline Phosphatase 71 U/L (38-126); Anion Gap 7 mmol/L; Blood Urea Nitrogen 21 mg/dL (7-17); Calcium 9.3 mg/dL (8.4-10.2); Carbon Dioxide 26 mmol/L (22-30); Chloride 104 mmol/L (98-107); Glucose 92 mg/dL (74-99); Magnesium 2.1 mg/dL (1.6-2.3); Non-African American GFR(CKD) 80 (>60 ml/min/1.73 sqM); Potassium 3.7 mmol/L (3.5-5.1); Sodium 137 mmol/L (137-145); Total Bilirubin 0.7 mg/dL (0.2-1.3); Total Protein 6.8 g/dL (6.3-8.2)
[2020-10-17 15:26] LABS: Partial Thromboplastin Time 25.2 sec (22.0-30.0); Prothrombin Time 10.4 sec (9.0-12.0)
--- NOTE | 2020-10-17 16:06 | XR ---
EXAMINATION TYPE: XR chest 1V portable DATE OF EXAM: 10/17/2020 COMPARISON: 05/31/2020 HISTORY: Weakness TECHNIQUE: Single view FINDINGS: There is no heart failure nor confluent pneumonic infiltrate. Costophrenic angles are clear . Heart size is normal. Bony thorax appears intact. IMPRESSION: No active cardiac pulmonary disease. No change.
[2020-10-17 16:07] VITALS: BP 125/71; PULSE 75; RESP 16
[2020-10-17 16:21] LABS: Appearance,Urine Cloudy (Clear); Bacteria,Urine Occasional /hpf; Bilirubin,Urine Negative (Negative); Blood,Urine Trace (Negative); Color,Urine Yellow; Glucose,Urine (UA) Negative (Negative); Ketones,Urine 2+ (Negative); Leukocyte Esterase,Urine Large (Negative); Mucus,Urine Many /hpf; Nitrite,Urine Negative (Negative); Protein,Urine 1+ (Negative); RBC,Urine 10 /hpf (0-5); Specific Gravity,Urine 1.031 (1.001-1.035); Squamous Epithelial Cell,Urine 4 /hpf (0-4); Urobilinogen,Urine <2.0 mg/dL (<2.0); WBC,Urine 8 /hpf (0-5)
== END 2020-10-17 17:22 | disposition home or self-care (01) ==
LOC: EC 13:53
DX: B34.9 Viral infection, unspecified (principal); M25.511 Pain in right shoulder; M25.512 Pain in left shoulder; J45.909 Unspecified asthma, uncomplicated; F17.200 Nicotine dependence, unspecified, uncomplicated; Z20.822 Contact with and (suspected) exposure to COVID-19; Z86.018 Personal history of other benign neoplasm; Z86.16 Personal history of COVID-19; Z79.899 Other long term (current) drug therapy; Z88.0 Allergy status to penicillin
CPT/HCPCS: 36415; 93005; 80053; 83605; 83735; 84484; 85025; 85610; 85730; 81001; 87635; 71045; 99285; 96374; 96375; 96361 ×2; J2405; J1885

== ENCOUNTER → 2021-08-10 | Outpatient (CLI) | payer MEDICARE ==
--- NOTE | 2021-08-10 11:36 | US ---
LOWER EXTREMITY VENOUS INSUFFICIENCY CLINICAL HISTORY: M79.606 PAIN IN LEG, UNSPECIFIED. SIDE PERFORMED: BILATERAL 1) Color flow is present and patency is documented in the following vessels. No DVT or SVT is noted . Common Femoral Vein Deep Femoral Vein Femoral Vein Popliteal Vein Proximal Calf Veins Greater Saph Vein Upper Small Saph Vein 2) There is venous reflux noted at the following venous levels: Right: EIV, GSV, CFV, SSV Left: EIV, GSV IMPRESSION: No evidence of DVT of the lower extremities. Bilateral venous reflux as described above.
== END | disposition home or self-care (01) ==
LOC: RADUSWWP 09:38
PROVIDERS: ATTEND Family Medicine
DX: M79.606 Pain in leg, unspecified (principal)
CPT/HCPCS: 93922; 93923; 93970

== ENCOUNTER 2022-02-05 11:10 | Emergency (ER) | payer MEDICARE ==
[2022-02-05 11:44] VITALS: TEMP 97
[2022-02-05 12:04] VITALS: RESP 18
--- NOTE | 2022-02-05 12:08 | ED ---
Chest Pain HPI - General Chief Complaint: Chest Pain Stated Complaint: abn EKG Time Seen by Provider: 02/05/22 11:53 Source: patient Mode of arrival: ambulatory Limitations: no limitations - History of Present Illness Initial Comments: This patient is a 66-year-old woman who was sent here from the primary care clinic to have evaluation related to chest pain she has been having. She states the pains of been going on for weeks now. They are intermittent lasting anywhere from minutes to hours. She has not noted anything that influences the pain, making it better or worse. She has not noted an exertional component. She does state that one night she woke with the pain and she was sweating. Otherwise no related symptoms. MD Complaint: chest pain -: week(s) Onset: during rest Pain Location: substernal, left chest, right chest Pain Radiation: none Severity: moderate Quality: aching Consistency: intermittent Improves With: nothing Worsens With: nothing Anginal Symptoms: diaphoresis Treatments Prior to Arrival: none - Related Data Home Medications Medication Instructions Recorded Confirmed Cholecalciferol [Vitamin D3 (25 100 mcg PO DAILY 02/05/22 02/05/22 Mcg = 1000 Iu)] Cyanocobalamin (Vitamin B-12) 1,000 mcg PO DAILY 02/05/22 02/05/22 [Vitamin B-12] Furosemide [Lasix] 20 mg PO DAILY 02/05/22 02/05/22 Nitrofurantoin Monohyd/M-Cryst 100 mg PO BID 02/05/22 02/05/22 [Macrobid] Nystatin 100,000 Unit/ml Susp 5 ml PO QID 02/05/22 02/05/22 [Mycostatin Oral Susp] Previous Rx's Medication Instructions Recorded Pantoprazole Sodium [Protonix] 40 mg PO DAILY #30 tablet. 10/31/18 Allergies Allergy/AdvReac Type Severity Reaction Status Date / Time Penicillins Allergy Intermediate Rash/Hives Verified 02/05/22 14:19 Review of Systems ROS Statement: Those systems with pertinent positive or pertinent negative responses have been documented in the HPI. ROS Other: All systems not noted in ROS Statement are negative. Constitutional: Denies: fever, chills Respiratory: Denies: cough, dyspnea Cardiovascular: Reports: as per HPI, chest pain. Denies: palpitations, edema, syncope Gastrointestinal: Denies: abdominal pain, nausea, vomiting, diarrhea, melena, hematochezia Genitourinary: Denies: dysuria, hematuria Musculoskeletal: Reports: arthralgia, myalgia. Denies: back pain Skin: Denies: rash Neurological: Denies: headache, weakness EKG Findings - EKG Results: EKG: interpreted by ISI, sinus rhythm (Rate 68 bpm), normal axis, normal QRS, normal ST/T Past Medical History Past Medical History: Asthma Additional Past Medical History / Comment(s): diverticulitis, pt reports firmness to skin lt arm where IV was placed recent hospitalization plans to call dr boyer this am to discuss for care advice History of Any Multi-Drug Resistant Organisms: None Reported Past Surgical History: Hysterectomy, Orthopedic Surgery Additional Past Surgical History / Comment(s): surgeries for plantar fasciatis, ganglion cysts, sergio's neuroma, tendon release Past Anesthesia/Blood Transfusion Reactions: Family History of Problems w/ Anesthesia, Motion Sickness, Postoperative Nausea & Vomiting (PONV) Additional Past Anesthesia/Blood Transfusion Reaction / Comment(s): mother ponv Past Psychological History: No Psychological Hx Reported Smoking Status: Current every day smoker Past Alcohol Use History: None Reported Past Drug Use History: None Reported - Past Family History Father Family Medical History: Hypertension Additional Family Medical History / Comment(s): Pancreatitis Mother Family Medical History: Congestive Heart Failure (CHF) General Exam Limitations: no limitations General appearance: alert, in no apparent distress Head exam: Present: atraumatic, normocephalic Eye exam: Present: normal appearance. Absent: scleral icterus, conjunctival injection Respiratory exam: Present: normal lung sounds bilaterally. Absent: respiratory distress, wheezes, rales, rhonchi, stridor, chest wall tenderness, accessory muscle use, decreased breath sounds, prolonged expiratory Cardiovascular Exam: Present: regular rate, normal rhythm, normal heart sounds. Absent: systolic murmur, diastolic murmur, rubs, gallop GI/Abdominal exam: Present: soft. Absent: distended, tenderness, guarding, rebound, rigid, mass Extremities exam: Present: normal inspection, normal capillary refill. Absent: pedal edema, calf tenderness Back exam: Present: normal inspection. Absent: CVA tenderness (R), CVA tenderness (L) Neurological exam: Present: alert Skin exam: Present: warm, dry, intact, normal color. Absent: rash Course Vital Signs 02/05/22 02/05/22 02/05/22 11:40 12:03 12:30 Temperature 97 F L Pulse Rate 70 68 64 Respiratory 16 18 Rate Blood Pressure 119/83 140/79 140/79 O2 Sat by Pulse 98 95 98 Oximetry 02/05/22 02/05/22 02/05/22 13:00 13:30 14:00 Temperature Pulse Rate 65 62 65 Respiratory Rate Blood Pressure 124/67 126/74 122/70 O2 Sat by Pulse 94 L 98 99 Oximetry 02/05/22 14:30 Temperature Pulse Rate 65 Respiratory Rate Blood Pressure 129/80 O2 Sat by Pulse 97 Oximetry Disposition Clinical Impression: Chest pain Disposition: HOME SELF-CARE Condition: Good Instructions (If sedation given, give patient instructions): Chest Pain (ED) Is patient prescribed a controlled substance at d/c from ED?: No Referrals: Alphonso Ruiz, ADALID [Family Provider] - 1-2 days
[2022-02-05 12:12] LABS: Basophils # (A) 0.1 k/uL (0-0.2); Basophils % (A) 1 %; Eosinophils # (A) 0.2 k/uL (0-0.7); Eosinophils % (A) 4 %; HCT 46.7 % (34.0-46.0); HGB 16.3 gm/dL (11.4-16.0); Lymphocytes # (A) 1.4 k/uL (1.0-4.8); Lymphocytes % (A) 23 %; MCH 32.4 pg (25.0-35.0); MCHC 34.8 g/dL (31.0-37.0); Mean Platelet Volume 6.7; Monocytes # (A) 0.3 k/uL (0-1.0); Monocytes % (A) 5 %; Neutrophils # (A) 3.9 k/uL (1.3-7.7); Neutrophils % (A) 65 %; Platelet Count 311 k/uL (150-450); RBC 5.02 m/uL (3.80-5.40); WBC 6.1 k/uL (3.8-10.6)
--- NOTE | 2022-02-05 12:25 | XR ---
EXAMINATION TYPE: XR chest 2V DATE OF EXAM: 02/05/2022 12:20 PM COMPARISON: Chest radiographs from 10/17/2020 TECHNIQUE: XR chest 2V Frontal and lateral views of the chest. CLINICAL INDICATION:Female, 66 years old with history of Chest Pain; FINDINGS: Lungs/Pleura: There is no evidence of pleural effusion, focal consolidation, or pneumothorax. Pulmonary vascularity: Unremarkable. Heart/mediastinum: Cardiomediastinal silhouette is unremarkable. Musculoskeletal: No acute osseous pathology. IMPRESSION: No acute cardiopulmonary disease/process.
[2022-02-05 12:33] LABS: ALT 16 U/L (4-34); AST 23 U/L (14-36); African American GFR (CKD) >90 (>60 ml/min/1.73 sqM); Albumin 4.3 g/dL (3.5-5.0); Alkaline Phosphatase 74 U/L (38-126); Anion Gap 7 mmol/L; Blood Urea Nitrogen 17 mg/dL (7-17); Calcium 9.1 mg/dL (8.4-10.2); Carbon Dioxide 30 mmol/L (22-30); Chloride 101 mmol/L (98-107); Glucose 96 mg/dL (74-99); Magnesium 1.7 mg/dL (1.6-2.3); Non-African American GFR(CKD) 82 (>60 ml/min/1.73 sqM); Potassium 3.6 mmol/L (3.5-5.1); Sodium 138 mmol/L (137-145); Total Bilirubin 1.1 mg/dL (0.2-1.3); Total Protein 7.1 g/dL (6.3-8.2)
[2022-02-05 12:36] LABS: Prothrombin Time 10.6 sec (9.0-12.0)
[2022-02-05 12:37] LABS: Partial Thromboplastin Time 25.6 sec (22.0-30.0)
[2022-02-05 14:16] LABS: Appearance,Urine Clear (Clear); Bacteria,Urine Rare /hpf; Bilirubin,Urine Negative (Negative); Blood,Urine Negative (Negative); Color,Urine Yellow; Glucose,Urine (UA) Negative (Negative); Hyaline Casts,Urine 1 /lpf (0-2); Ketones,Urine Negative (Negative); Leukocyte Esterase,Urine Small (Negative); Mucus,Urine Rare /hpf; Nitrite,Urine Negative (Negative); PH, Urine 6.5 (5.0-8.0); Protein,Urine Negative (Negative); RBC,Urine 1 /hpf (0-5); Specific Gravity,Urine 1.011 (1.001-1.035); Squamous Epithelial Cell,Urine 1 /hpf (0-4); Urobilinogen,Urine <2.0 mg/dL (<2.0); WBC,Urine 2 /hpf (0-5)
[2022-02-05 14:53] VITALS: BP 129/80; PULSE 65
== END 2022-02-05 15:06 | disposition home or self-care (01) ==
LOC: EC 11:10
DX: R07.9 Chest pain, unspecified (principal); J45.909 Unspecified asthma, uncomplicated; Z88.0 Allergy status to penicillin; F17.200 Nicotine dependence, unspecified, uncomplicated
CPT/HCPCS: 36415; 71046; 80053; 81001; 83735; 84484; 85025; 85610; 85730; 99284; 99285

== ENCOUNTER → 2023-04-21 | Outpatient (CLI) | payer MEDICARE ==
[2023-04-21 13:34] LABS: Basophils % (A) 1 %; Eosinophils # (A) 0.2 k/uL (0-0.7); Eosinophils % (A) 3 %; HCT 46.9 % (34.0-46.0); HGB 16.2 gm/dL (11.4-16.0); Lymphocytes % (A) 36 %; MCH 31.9 pg (25.0-35.0); MCHC 34.5 g/dL (31.0-37.0); MCV 92.4 fL (80.0-100.0); Mean Platelet Volume 7.1; Monocytes # (A) 0.3 k/uL (0-1.0); Monocytes % (A) 4 %; Neutrophils # (A) 3.1 k/uL (1.3-7.7); Neutrophils % (A) 54 %; Platelet Count 257 k/uL (150-450); RBC 5.08 m/uL (3.80-5.40); RDW 12.7 % (11.5-15.5); WBC 5.7 k/uL (3.8-10.6)
[2023-04-21 13:47] LABS: ALT 18 U/L (4-34); AST 21 U/L (14-36); African American GFR (CKD) >90 (>60 ml/min/1.73 sqM); Albumin 4.1 g/dL (3.5-5.0); Albumin/Globulin Ratio 1.5; Alkaline Phosphatase 69 U/L (38-126); Anion Gap 7 mmol/L; Blood Urea Nitrogen 14 mg/dL (7-17); Calcium 9.3 mg/dL (8.4-10.2); Carbon Dioxide 30 mmol/L (22-30); Chloride 104 mmol/L (98-107); Globulin 2.7 g/dL; Glucose 91 mg/dL (74-99); Non-African American GFR(CKD) >90 (>60 ml/min/1.73 sqM); Potassium 3.7 mmol/L (3.5-5.1); Sodium 141 mmol/L (137-145); Total Bilirubin 0.7 mg/dL (0.2-1.3); Total Protein 6.8 g/dL (6.3-8.2)
--- NOTE | 2023-04-22 11:56 | CT ---
EXAMINATION TYPE: CT abdomen pelvis w con DATE OF EXAM: 04/21/2023 COMPARISON: 03/27/2023 HISTORY: 67-year-old female R1 0.32, LLQ pain x1 month, h/o diverticulosis TECHNIQUE: Contiguous axial scanning of the abdomen and pelvis following administration of 100 ml Iso guillermina 300 IV contrast. Delayed images through the kidneys and coronal/sagittal reconstructions perform ed. CT DLP: 691.7 mGycm Automated exposure control for dose reduction was used. FINDINGS: LUNG BASES: No gross abnormality. LIVER/GB: No significant abnormality is appreciated. PANCREAS: No significant abnormality is seen. SPLEEN: No significant abnormality is seen. ADRENALS: No significant abnormality is seen. KIDNEYS: No significant abnormality is seen. BOWEL: Normal appendix. No dilated small bowel. Scattered mild stool. Scattered colonic diverticulosi s, greatest in the sigmoid colon. Staple line from prior resection and reanastomosis of the rectosigm oid junction. No pericolonic inflammatory change. LYMPH NODES: No greater than 1cm abdominal or pelvic lymph nodes are appreciated. PELVIS: Uterus surgically absent. Neither ovary seen. Bladder partially distended. Left-sided pelvic phlebolith. No abnormal fluid collection the pelvis or pelvic lymphadenopathy. OSSEOUS STRUCTURES: Moderate spondylotic change mid to lower cervical spine. OTHER: No free air or free fluid. IMPRESSION: LEFT-SIDED COLONIC DIVERTICULOSIS. STAPLE LINE AT THE RECTOSIGMOID JUNCTION FROM PRIOR RESECTION AND RE-ANASTOMOSIS. NO ACUTE INFLAMMATORY PROCESS IDENTIFIED TO ACCOUNT FOR THE PATIENT'S SYMPTOMS.
== END | disposition home or self-care (01) ==
LOC: RADCTMAIN 12:45
PROVIDERS: ATTEND Family Medicine
DX: K57.30 Diverticulosis of large intestine without perforation or abscess without bleeding (principal); Z98.890 Other specified postprocedural states
CPT/HCPCS: 80053; 85025; 74177; 36415; Q9967

== ENCOUNTER 2024-01-03 07:27 | Day surgery (SDC) | payer MEDICARE ==
[~2024-01-03 07:27] MED LIST changes: -LACTATED RINGERS 1,000 ML IV SCH; +LIDOCAINE 1% (10MG/ML) FOR IV START INTRADERMA PRN; -LIDOCAINE 1% 20 ML VIAL (10MG/ML) FOR IV START INTRADERMA PRN
[2024-01-03] MEDS: IV FLUID CONTINUATION 1,000 ML IV ONE (07:41)
[2024-01-03] MEDS: LACTATED RINGERS 1,000 ML IV SCH (07:51)
--- NOTE | 2024-01-03 08:06 | P.GSHP ---
History of Present Illness H&P Date: 01/03/24 CHIEF COMPLAINT: Dysphagia and colon screen HISTORY OF PRESENT ILLNESS: The patient is a 68-year-old female who presents with dysphagia and need for colon screen. Upper and lower endoscopy were offered for further evaluation and management. PAST MEDICAL HISTORY: Please see list. PAST SURGICAL HISTORY: Please see list. MEDICATIONS: Please see list. ALLERGIES: Please see list. SOCIAL HISTORY: No illicit drug use FAMILY HISTORY: No reports of Crohn disease or ulcerative colitis. REVIEW OF ORGAN SYSTEMS: CONSTITUTIONAL: No reports of fevers or chills. GI: Denies any blood in stools or constipation. PHYSICAL EXAM: VITAL SIGNS: Stable GENERAL: Well-developed pleasant in no acute distress. HEENT: No scleral icterus. Extraocular movements grossly intact. Moist buccal mucosa. NECK: Supple without lymphadenopathy. CHEST: Unlabored respirations. Equal bilateral excursions. CARDIOVASCULAR: Regular rate and rhythm. Distal 2+ pulses. ABDOMEN: Soft, nondistended. MUSCULOSKELETAL: No clubbing, cyanosis, or edema. ASSESSMENT: 1. Dysphagia 2. Colon screen. PLAN: 1. Recommend proceeding with an upper and lower endoscopy Past Medical History Past Medical History: Asthma, GERD/Reflux Additional Past Medical History / Comment(s): diverticulitis, swollen legs History of Any Multi-Drug Resistant Organisms: None Reported Past Surgical History: Bowel Resection, Hysterectomy, Orthopedic Surgery Additional Past Surgical History / Comment(s): surgeries for plantar fasciaitis, ganglion cysts, sergio's neuroma, tendon release Past Anesthesia/Blood Transfusion Reactions: Family History of Problems w/ Anesthesia, Motion Sickness, Postoperative Nausea & Vomiting (PONV) Additional Past Anesthesia/Blood Transfusion Reaction / Comment(s): mother - PONV Smoking Status: Never smoker - Past Family History Father Family Medical History: Hypertension Additional Family Medical History / Comment(s): Pancreatitis Mother Family Medical History: Congestive Heart Failure (CHF) Medications and Allergies Home Medications Medication Instructions Recorded Confirmed Type Cholecalciferol [Vitamin D3 (25 50 mcg PO DAILY 02/05/22 01/03/24 History Mcg = 1000 Iu)] Cyanocobalamin (Vitamin B-12) 1,000 mcg PO DAILY 02/05/22 01/03/24 History [Vitamin B-12] Furosemide [Lasix] 20 mg PO DAILY 02/05/22 01/03/24 History Estradiol Cream [Estrace Cream 1 dose VAGINAL Q7D 01/02/24 01/03/24 History 0.01%] Omeprazole 20 mg PO BID 01/02/24 01/03/24 History Allergies Allergy/AdvReac Type Severity Reaction Status Date / Time Penicillins Allergy Intermediate Rash/Hives Verified 01/03/24 08:01
[2024-01-03] MEDS: ONDANSETRON 4 MG/2 ML VIAL IVP STA (08:08)
[2024-01-03] MEDS ORDERED: LIDOCAINE 1% INJ 10MG/ML (20 ML MDV) ONE (08:09)
[2024-01-03] MEDS ORDERED: PROPOFOL 10 MG/ML 20 ML VIAL IV ONE (08:09)
[2024-01-03 08:10] VITALS: TEMP 97
[2024-01-03 09:04] VITALS: BP 114/54; PULSE 69; RESP 16
--- NOTE | 2024-01-03 12:32 | P.PCN ---
Date of Procedure: 01/03/24 Description of Procedure: PREOPERATIVE DIAGNOSIS: Colonoscopy screening. Personal history of colon polyps POSTOPERATIVE DIAGNOSIS: Colonoscopy screening. Severe pandiverticulosis OPERATION: Colonoscopy to the cecum, ileocecal valve and appendiceal orifice. SURGEON: Princess Tolentino MD. ANESTHESIA: MAC. INDICATIONS: The patient is a 68-year-old female who presents for colonoscopy screening. Last colonoscopy 5 years ago. Benefits and risks were described and informed consent was obtained. DESCRIPTION OF PROCEDURE: The patient had undergone Sutab prep. The patient had been brought into the operating room and laid in the left lateral decubitus position. After adequate intravenous sedation, the rectum was examined with 2% lidocaine jelly. No external hemorrhoids were encountered. The rectal tone was within normal limits. No lesions were palpated in the rectal vault. An Olympus colonoscope was advanced until the cecum, ileocecal valve and appendiceal orifice were clearly viewed. The prep was excellent. Severe pandiverticulosiswas encountered. No colonic polyps were found. No evidence of focal colitis was found. Retroflexion of the scope demonstrated grade 1 internal hemorrhoids without active bleeding or inflammation. The colon was desufflated. The patient had tolerated the proc edure well. Withdrawal time was over 6 minutes. FINDINGS: Aronchick preparation quality scale 2 (1-5) Internal hemorrhoids, grade 1 No external prolapsed hemorrhoids. No arteriovenous malformations. No adenomatous polyps. No focal colitis. Severe pandiverticulosis RECOMMENDATIONS: Lower endoscopy in 5 years, 2028 Plan - Discharge Summary Discharge Rx Participant: Yes New Discharge Prescriptions: New Sucralfate [Carafate] 1 gm PO BID #30 tablet Omeprazole [PriLOSEC] 40 mg PO DAILY #30 cap Continue Cyanocobalamin (Vitamin B-12) [Vitamin B-12] 1,000 mcg PO DAILY Cholecalciferol [Vitamin D3 (25 Mcg = 1000 Iu)] 50 mcg PO DAILY Estradiol Cream [Estrace Cream 0.01%] 1 dose VAGINAL Q7D Furosemide [Lasix] 20 mg PO DAILY Discontinued Omeprazole 20 mg PO BID Discharge Medication List Cholecalciferol [Vitamin D3 (25 Mcg = 1000 Iu)] 50 mcg PO DAILY 02/05/22 [History] Cyanocobalamin (Vitamin B-12) [Vitamin B-12] 1,000 mcg PO DAILY 02/05/22 [History] Furosemide [Lasix] 20 mg PO DAILY 02/05/22 [History] Estradiol Cream [Estrace Cream 0.01%] 1 dose VAGINAL Q7D 01/02/24 [History] Omeprazole [PriLOSEC] 40 mg PO DAILY #30 cap 01/03/24 [Rx] Sucralfate [Carafate] 1 gm PO BID #30 tablet 01/03/24 [Rx] Follow up Appointment(s)/Referral(s): Princess Tolentino MD [STAFF PHYSICIAN] - 01/23/24 9:30 am Patient Instructions/Handouts: *Surgery [facility] - (Anesthesia) Discharge Instructions Outpatient Surgery, Peptic Ulcer (DC), Gastritis (DC), Diverticulosis (DC), Colorectal Polyps (GEN) Activity/Diet/Wound Care/Special Instructions: Repeat colonoscopy 5 years, 2028 Discharge Disposition: HOME SELF-CARE
--- NOTE | 2024-01-03 12:35 | P.PCN ---
Date of Procedure: 01/03/24 Description of Procedure: PREOPERATIVE DIAGNOSIS: Dysphagia Gastroesophageal reflux disease. POSTOPERATIVE DIAGNOSIS: Diaphragmatic hiatal hernia Moderate to severe gastritis without bleeding Acute gastric ulcers Presbyesophagus Duodenitis OPERATION: Esophagogastroduodenoscopy with biopsies along esophagus, antrum and duodenum SURGEON: Princess Tolentino MD ANESTHESIA: MAC. INDICATIONS: The patient is a 45-year-old female who presents with reflux disease. Benefits and risks of the procedure were described. Informed consent was obtained. DESCRIPTION: The patient was brought into the endoscopy suite and laid in the left lateral decubitus position. An Olympus gastroscope was passed along the posterior oropharynx down to the distal esophagus where the squamocolumnar junction was encountered at 37 cm from the incisors. The stomach was entered and bile reflux was found. Additional findings are listed below. Biopsies with cold forceps were obtained of the antrum. The first through third portion of the duodenum was examined. Retroflexion of the scope confirmed Hill grade 2 lower esophageal valve. The squamocolumnar junction demonstrated LA grade B erosive esophagitis. The stomach was desufflated. The patient tolerated the procedure well. FINDINGS: Squamocolumnar junction 37 cm from the incisors. Diaphragmatic hiatus at 40 cm. Hiatal hernia, 3 cm Hill grade 2 lower esophageal valve. LA grade B erosive esophagitis. Biopsies obtained of the duodenum. Presence of duodenitis Chronic gastritis with biopsies obtained. Acute gastric ulcers, punctate along gastric antrum, biopsied Moderate tertiary contractions consistent with presbyesophagus RECOMMENDATIONS: Repeat upper endoscopy 4 to 6 weeks after treatment for severe gastritis including gastric ulcers Start omeprazole 40 mg daily and Carafate 1 g twice daily
== END 2024-01-03 09:23 | disposition home or self-care (01) ==
LOC: ORWHC2ENDO 07:27
PROVIDERS: ATTEND Surgery Plastic and Reconstructive Surgery
DX: Z12.11 Encounter for screening for malignant neoplasm of colon (principal); K29.80 Duodenitis without bleeding; K25.3 Acute gastric ulcer without hemorrhage or perforation; K44.9 Diaphragmatic hernia without obstruction or gangrene; K64.0 First degree hemorrhoids; K57.32 Diverticulitis of large intestine without perforation or abscess without bleeding; R22.43 Localized swelling, mass and lump, lower limb, bilateral; J45.909 Unspecified asthma, uncomplicated; Z90.710 Acquired absence of both cervix and uterus; Z86.018 Personal history of other benign neoplasm; Z82.49 Family history of ischemic heart disease and other diseases of the circulatory system; Z83.79 Family history of other diseases of the digestive system; Z88.0 Allergy status to penicillin; Z86.010 Personal history of colon polyps; Z79.899 Other long term (current) drug therapy; Z79.51 Long term (current) use of inhaled steroids
CPT/HCPCS: 88305; 45378; 43239; J2405; J2001; J2704